=== PATIENT | male | born 1955 | race African-American/Black ===

== ENCOUNTER → 2016-06-14 | Outpatient (CLI) | payer BC | LOC: RAD 07:43 | PROVIDERS: ATTEND Physician Assistant | DX: R94.5 Abnormal results of liver function studies (principal) | CPT/HCPCS: 76705 ==

== ENCOUNTER → 2018-03-04 | Outpatient (CLI) | payer BC ==
--- NOTE | 2018-03-04 16:06 | RADIOLOGY REPORT (SQ) ---
EXAM DESCRIPTION: LUMBAR SPINE COMPLETE COMPLETED DATE/TIME: 03/04/2018 3:37 pm REASON FOR STUDY: RT HIP PAIN M25.551 PAIN IN RIGHT HIP COMPARISON: CT ABDOMEN PELVIS 06/01/2011 NUMBER OF VIEWS: Five views including obliques. TECHNIQUE: AP, lateral, oblique, and sacral radiographic images acquired of the lumbar spine. LIMITATIONS: None. FINDINGS: MINERALIZATION: Normal. SEGMENTATION: Normal. No transitional anatomy. ALIGNMENT: Normal. VERTEBRAE: Maintained height. No fracture or worrisome bone lesion. DISCS: Disc space loss of height at L5-S1 POSTERIOR ELEMENTS: Bilateral facet arthropathy from L3-4 through L5-S1. No plain film evidence of s pondylolysis HARDWARE: None in the spine. PARASPINAL SOFT TISSUES: Normal. PELVIS: Not in the field of view. SI joints are unremarkable OTHER: No other significant finding. IMPRESSION: Disc space loss of height at L5-S1. Lower lumbar facet arthropathy. TECHNICAL DOCUMENTATION: JOB ID: [id number] [employer]- All Rights Reserved Reading location - IP/workstation name: [email or web address]
--- NOTE | 2018-03-04 16:06 | RADIOLOGY REPORT (SQ) ---
EXAM DESCRIPTION: HIP RIGHT AP/LATERAL COMPLETED DATE/TIME: 03/04/2018 3:37 pm REASON FOR STUDY: RT HIP PAIN M25.551 PAIN IN RIGHT HIP COMPARISON: None. NUMBER OF VIEWS: Two views. TECHNIQUE: AP pelvis and additional frog-leg view of the right hip. LIMITATIONS: None. FINDINGS: MINERALIZATION: Normal. RIGHT HIP: Mild asymmetric narrowing of the right hip joint medially. No fracture or dislocation. LEFT HIP: No fracture or dislocation. No worrisome bone lesions. PUBIS AND ISCHIUM: No fracture. PELVIS: No fracture. SACRUM: No fracture or dislocation. No worrisome bone lesions. LOWER LUMBAR SPINE: No fracture or dislocation. No worrisome bone lesions. No significant disc disea se. SOFT TISSUES: No findings. OTHER: No other significant finding. IMPRESSION: 1. Mild degenerative right hip joint narrowing. 2. No acute osseous findings. TECHNICAL DOCUMENTATION: JOB ID: [id number] [employer]- All Rights Reserved Reading location - IP/workstation name: [email or web address]
== END ==
LOC: OD 15:03
PROVIDERS: ATTEND Family Medicine
DX: M25.551 Pain in right hip (principal)
CPT/HCPCS: 72110

== ENCOUNTER 2019-05-29 10:58 | Day surgery (SDC) | payer BC ==
[~2019-05-29 10:58] MED LIST: BUPIVACAINE HCL 0.75% INJ/PF (7.5 MG/1 ML) 10 ML SDV OD PRN; CHONDR SU A NA/HYALUR INTRAOC KIT (SURGICARE) ONE; EPINEPHRINE INJ/PF 1 MG/1 ML AMPULE ONE; KETOROLAC TROMETHAMINE 0.45% 4 DROP/0.4 ML DROPERETTE OD PRN; LIDOCAINE 1% INJ-PF (10 MG/ML) 30 ML SDV ONE; LIDOCAINE 4% INJ/PF (40 MG/ML) 5 ML AMPUL OD PRN
[2019-05-29] MEDS ORDERED: MIDAZOLAM 2 MG/2 ML INJ ONE (11:25)
[2019-05-29] MEDS: CYCLOPENTOLATE 0.2%/PHENYLEPHRINE 1% OPH SOLN 2 ML OD PRN ×3 (11:48→12:08)
[2019-05-29] MEDS: TROPICAMIDE 1% OPH SOLN 15 ML OD PRN ×3 (11:48→12:08)
[2019-05-29] MEDS: TETRACAINE HCL 0.5% OPH SOLN 4 ML OD PRN ×3 (11:48→12:10)
[2019-05-29] MEDS: BESIFLOXACIN HCL 0.6% OPH SUSP 5 ML BOTTLE OD PRN ×4 (11:49→12:36)
[2019-05-29] MEDS: DORZOLAMIDE HCL 2%/TIMOLOL MALEAT 0.5% OPH SOLN 10 ML OD PRN ×2 (12:36)
--- NOTE | 2019-05-29 21:25 | Operative Report ---
Operative Report-[facility] Operative Report: PREOPERATIVE DIAGNOSIS: Nuclear, cortical and posterior subcapsular cataract, right eye POSTOPERATIVE DIAGNOSIS: Nuclear, cortical and posterior subcapsular cataracts, right eye PROCEDURE: Phacoemulsification and posterior chamber intraocular lens implant, right eye PROCEDURE DATE: [May 29, 2019 ] SURGEON: Albino Leavitt MD Next FOOT GATHERER: [Robby] ANESTHESIA: Topical with IV sedation next COMPLICATIONS: None TISSUE TO PATHOLOGY: None ESTIMATED BLOOD LOSS: None INDICATION FOR SURGERY: [Mr. Ortiz is a 63 year old male ] Who presents to our clinic complaining of difficulty seeing, to read and drive due to blurry vision in both eyes. On examination, she was found to have best corrected visual acuity of [20/70 ] in the right eye. Ophthalmoscopy revealed a [1+] nuclear, [2+] corneal degeneration, [3+] posterior subcapsular cataract in the right eye with normal appearing cornea, vitreous, retina and optic nerve. I discussed the findings of the exam with the patient. We discussed the risks, benefits and alternatives of cataract extraction and intraocular lens implant in the right eye as a means of improving her vision. Risks that were discussed with the patient include infection, bleeding, retinal detachment and possible need for additional surgery. The patient understands that she may need to wear glasses after surgery. After discussion, the patient indicated her interest in having this procedure performed by signing an informed witness consent form. REPORT OF PROCEDURE: On the day of surgery, the patient was given a topical application to the right eye to consist of drop of Tetracaine 0.5%, tropicamide 1%, Cyclomidril, Besivance 0.6% and Acular 0.45%. The patient was then taken to the operating room in a supine position in a standard eye bed. Intravenous sedation was administered and she was prepped and draped in the standard fashion. A timeout was performed to confirm the surgical site. Attention was directed to the right eye where a paracentesis was created at the 11:30 position at the corneal limbus with a 15 degree blade. The anterior chamber was filled with 0.3 mL of 1% methylparaben free lidocaine and after 30 seconds the anterior chamber was filled with viscoelastic material. A 3 plane corneal incision was then made at the 9 o'clock position at the cornea limbus with a keratome. A continuous curvilinear capsulorrhexis was then made in the anterior capsule of the lens with a cystotome. The lens was hydrodissected using balanced saline solution. The lens nucleus was then removed by phacoemulsification using the stop and chop technique. CDE [16.40]. The remaining cortical material was then removed from the posterior capsular bag using irrigation and aspiration. The posterior capsule bag was filled with viscoelastic material and a lens implant was inserted into the posterior capsule bag. I have chosen for this case is a one piece acrylic lens from [employer] model [[id number]], serial number [[id number]], lens power [22.0]. The lens was removed from its package, inspected and found to be free of defects it was loaded into a [place] D in serter. The parts runner was passed through the temporal wound and the lens was advanced into the posterior capsular bag. The lens implant was centered in the posterior capsular bag with the Amador spatula the viscoelastic material was removed from the eye using irrigation and aspiration. The wounds were closed by stromal hydration and they were tested with the Weck-Lily sponges and found to have no leaks. Intraocular pressure was assessed by manual palpitation found to be with in the physiologic range. The drape and speculum were removed. Drops of Durezol, Combigan and gatifloxacin were instilled in the right eye. The patient was then taken to the recovery room in good condition. The patient tolerated the procedure very well. The patient was given a prescription for gatifloxacin, Durezol and Ilervo to use every 2 hours while awake today. She will return my clinic tomorrow for follow-up evaluation.
== END 2019-05-29 13:35 | disposition home or self-care (01) ==
LOC: SC 10:58
PROVIDERS: ATTEND Ophthalmology
DX: H25.811 Combined forms of age-related cataract, right eye (principal); Z79.84 Long term (current) use of oral hypoglycemic drugs; Z79.899 Other long term (current) drug therapy; Z79.4 Long term (current) use of insulin; E11.9 Type 2 diabetes mellitus without complications; I10 Essential (primary) hypertension; Z87.891 Personal history of nicotine dependence; E78.00 Pure hypercholesterolemia, unspecified; H25.813 Combined forms of age-related cataract, bilateral; E11.319 Type 2 diabetes mellitus with unspecified diabetic retinopathy without macular edema; H40.1130 Primary open-angle glaucoma, bilateral, stage unspecified
CPT/HCPCS: 66984; 82962; V2632; J2250; J3490 ×3; J0171; 142

== ENCOUNTER 2019-10-15 11:25 | Emergency (ER) | payer BC ==
[2019-10-15] MEDS ORDERED: NORMAL SALINE 1000 ML 1,000 ML IV ONE ×2 (12:05→13:27)
--- NOTE | 2019-10-15 12:09 | ER Document Report ---
ED Medical Screen (RME) - General Chief Complaint: High Blood Sugar Stated Complaint: ABNORMAL LABS Time Seen by Provider: 10/15/19 12:03 Primary Care Provider: KEI SCHAEFFER MD [Primary Care Provider] - Follow up as needed Mode of Arrival: Wheelchair Information source: Patient Notes: 64-year-old male presented to ED for upper abdominal pain abnormal labs diabetic blood sugar in the pit area was 390. He is confused states he went to the doctor's office and they sent him to the emergency room for abnormal labs but he does not know of the even did any labs. He is slightly confused. He states he is having a lot of pain in his epigastric area. I have greeted and performed a rapid initial assessment of this patient. A comprehensive ED assessment and evaluation of the patient, analysis of test results and completion of medical decision making process will be conducted by an additional ED providers. TRAVEL OUTSIDE OF THE [place] IN LAST 30 DAYS: No - Related Data Allergies/Adverse Reactions: ciprofloxacin [From Cipro] Allergy (Unknown, Verified 10/15/19 11:55) Past Medical History - Past Medical History Cardiac Medical History: Reports: Hx Hypertension Denies: Hx Heart Attack Pulmonary Medical History: Denies: Hx Asthma Neurological Medical History: Denies: Hx Cerebrovascular Accident, Hx Seizures GI Medical History: Denies: Hx Hepatitis, Hx Hiatal Hernia, Hx Ulcer Psychiatric Medical History: Denies: Hx Depression Infectious Medical History: Denies: Hx Hepatitis Past Surgical History: Denies: Hx Open Heart Surgery, Hx Pacemaker Physical Exam - Vital signs Vitals: Temp Pulse Resp BP Pulse Ox 98.1 F 101 H 18 151/96 H 96 10/15/19 11:10/15/19 11:10/15/19 11:10/15/19 11:10/15/19 11:27 Course - Vital Signs Vital signs: Temp Pulse Resp BP Pulse Ox 98.1 F 101 H 18 151/96 H 96 10/15/19 11:10/15/19 11:10/15/19 11:10/15/19 11:10/15/19 11:27 Doctor's Discharge - Discharge Referrals: KEI SCHAEFFER MD [Primary Care Provider] - Follow up as needed
[2019-10-15 12:32] LABS: ABSOLUTE BASOPHILS # (AUTO) 0.2 10^3/uL (0.0-0.2); ABSOLUTE EOSINOPHILS # (AUTO) 0.4 10^3/uL (0.0-0.6); ABSOLUTE LYMPHOCYTES (AUTO) 1.8 10^3/uL (0.5-4.7); RED CELL DISTRIBUTION WIDTH 14.4 % (11.5-14.0); TOTAL CELLS COUNTED % (AUTO) 100 %
[2019-10-15 12:45] LABS: VENOUS BLOOD BASE EXCESS -0.6 mmol/L; VENOUS BLOOD HCO3 24.7 mmol/L (20-32); VENOUS BLOOD PCO2 42.8 mmHg (35-63); VENOUS BLOOD PH 7.38 (7.30-7.42)
[2019-10-15 12:45] LABS: ALBUMIN 4.5 g/dL (3.5-5.0); ALKALINE PHOSPHATASE 215 U/L (38-126); ANION GAP 12 (5-19); ASPARTATE AMINO TRANSFERASE 30 U/L (17-59); BILIRUBIN,TOTAL 2.2 mg/dL (0.2-1.3); BLOOD UREA NITROGEN 12 mg/dL (7-20); CALCIUM 9.4 mg/dL (8.4-10.2); CARBON DIOXIDE 25 mmol/L (22-30); CHLORIDE 100 mmol/L (98-107); POTASSIUM 4.5 mmol/L (3.6-5.0); TOTAL PROTEIN 7.9 g/dL (6.3-8.2)
[2019-10-15 12:48] LABS: ABSOLUTE MONOCYTES (AUTO) 0.8 10^3/uL (0.1-1.4); ABSOLUTE NEUT (AUTO) 10.1 10^3/uL (1.7-8.2); BASOPHILS % (AUTO) 1.5 % (0-2); EOSINOPHILS % (AUTO) 3.2 % (0-6); HEMATOCRIT 45.7 % (37.9-51.0); HEMOGLOBIN 15.4 g/dL (13.5-17.0); LYMPHOCYTES % (AUTO) 13.8 % (13-45); MEAN CORPUSCULAR HEMOGLOBIN 30.5 pg (27.0-33.4); MEAN CORPUSCULAR HGB CONC 33.8 g/dL (32.0-36.0); MEAN CORPUSCULAR VOLUME 90 fl (80-97); MONOCYTES % (AUTO) 5.7 % (3-13); RED BLOOD COUNT 5.06 10^6/uL (4.35-5.55); SEGMENTED NEUTROPHILS % (AUTO) 75.8 % (42-78); WHITE BLOOD COUNT 13.3 10^3/uL (4.0-10.5)
[2019-10-15 12:55] LABS: GLUCOSE 402 mg/dL (75-110)
[2019-10-15 13:07] LABS: PLATELET COUNT 252 10^3/uL (150-450)
[2019-10-15] MEDS ORDERED: INSULIN REG, HUMAN 100 UNIT/ML 3 ML VIAL (PYX) IV ONE ×2 (13:30→14:37)
[2019-10-15] MEDS ORDERED: HYDRALAZINE HCL INJ/PF 20 MG/1 ML SDV IV ONE (13:52)
[2019-10-15] MEDS ORDERED: NICARDIPINE HCL RTU, ISO-OS 20 MG/200 ML RTUINJ IV PRN (13:53)
--- NOTE | 2019-10-15 14:04 | RADIOLOGY REPORT (SQ) ---
EXAM DESCRIPTION: CT HEAD WITHOUT IMAGES COMPLETED DATE/TIME: 10/15/2019 1:41 pm REASON FOR STUDY: altered mental status/memory loss COMPARISON: None. TECHNIQUE: Axial images acquired through the brain without intravenous contrast. Images reviewed wi th bone, brain and subdural windows. Additional sagittal and coronal reconstructions were generated. Images stored on PACS. All CT scanners at this facility use dose modulation, iterative reconstruction, and/or weight based d osing when appropriate to reduce radiation dose to as low as reasonably achievable (ALARA). [facility]: Dose Right [facility]: CareDose [facility]: Dose Right [facility]: Teradose 4D [facility]: [employer] RADIATION DOSE: CT Rad equipment meets quality standard of care and radiation dose reduction techniq ues were employed. CTDIvol: 53.2 mGy. DLP: 1070 mGy-cm. LIMITATIONS: None. FINDINGS: There is an area of hyperdensity in the left basal ganglia. There is no considerable mass effect, edema, or midline shift. The basal subarachnoid cisterns are preserved. There is no extra- axial fluid collection or effacement of the cerebral sulci. The confluent areas of hypodensity throughout the supratentorial periventricular and subcortical whit e matter are nonspecific but likely represent the sequela of chronic microvascular ischemia. The caliber the ventricles is concordant with the degree of sulcation. The right globe is aphakic. The orbits are intact. There is polypoid thickening of the mucosal lini ng of the maxillary sinuses. There is no fracture of the calvarium. IMPRESSION: Area of hyperdensity in the left basal ganglia. The location of the abnormality is typi cathie of an hypertensive intracerebral hemorrhage. There is no considerable associated mass effect, ed reji or midline shift. The basal subarachnoid cisterns are preserved. COMMENT: This report was called to HIOR MORRISSEY MD at13:57 on 10/15/2019. Quality ID # [id number]: Final reports with documentation of one or more dose reduction techniques (e.g., Au tomated exposure control, adjustment of the mA and/or kV according to patient size, use of iterative reconstruction technique) TECHNICAL DOCUMENTATION: JOB ID: [id number] 2010 [employer]- All Rights Reserved Reading location - IP/workstation name: [email or web address]
--- NOTE | 2019-10-15 14:05 | RADIOLOGY REPORT (SQ) ---
EXAM DESCRIPTION: CHEST SINGLE VIEW IMAGES COMPLETED DATE/TIME: 10/15/2019 1:53 pm REASON FOR STUDY: hypertension/altered mental status COMPARISON: AP view of the chest from 07/05/2015. EXAM PARAMETERS: NUMBER OF VIEWS: One view. TECHNIQUE: An AP view of the chest was obtained. RADIATION DOSE: NA LIMITATIONS: None. FINDINGS: LUNGS AND PLEURA: Low inspiratory lung volumes without a superimposed consolidation, sizea ble pleural effusion or pneumothorax. MEDIASTINUM AND HILAR STRUCTURES: No mediastinal or hilar contour abnormality. HEART AND VASCULAR STRUCTURES: The cardiac silhouette is enlarged. The pulmonary vasculature is with in normal limits given the low inspiratory lung volumes. BONES: No acute findings. HARDWARE: Implantable cardiac monitoring device. OTHER: No other finding. IMPRESSION: Cardiomegaly and low inspiratory lung volumes without a superimposed acute cardiopulmona ry process. TECHNICAL DOCUMENTATION: JOB ID: [id number] 2010 [employer]- All Rights Reserved Reading location - IP/workstation name: [email or web address]
[2019-10-15 14:09] LABS: PARTIAL THROMBOPLASTIN TIME 30.9 SEC (23.5-35.8)
[2019-10-15 14:11] LABS: PROTHROMBIN TIME 13.2 SEC (11.4-15.4)
[2019-10-15] MEDS ORDERED: TRANEXAMIC ACID INJ/PF 1,000 MG/10 ML SDV IV STA (14:30)
[2019-10-15] MEDS: INSULIN REG, HUMAN 100 UNIT/ML 3 ML VIAL (PYX) IV ONE ×2 (14:35→15:34)
[2019-10-15] MEDS ORDERED: DEXTROSE 5% IV PRN (14:36)
[2019-10-15] MEDS ORDERED: WATER IV PRN (14:36)
[2019-10-15] MEDS ORDERED: TRANEXAMIC ACID IV PRN (14:36)
[2019-10-15] MEDS ORDERED: TRANEXAMIC ACID INJ/PF 1,000 MG/10 ML SDV IV PRN (14:38)
--- NOTE | 2019-10-15 15:19 | ER Document Report ---
Entered by NORA OCASIO SCRIBE 10/15/19 [id number] Acting as scribe for:HIRO MORRISSEY MD ED General - General Chief Complaint: High Blood Sugar Stated Complaint: ABNORMAL LABS Time Seen by Provider: 10/15/19 12:03 Primary Care Provider: KEI GAMBOA MD [Primary Care Provider] - Follow up as needed Mode of Arrival: Wheelchair Information source: Patient, Relative Notes: This 64 year old male patient presents to the emergency department today with abnormal lab results. Patient states he had an appointment with Dr. Gamboa this morning and did not feel well. Dr. Gamboa sent him to the ED after abnormal lab results. Patient states he is unsure of what labs were done at Dr. Gamboa's office. Patient states he is nauseous and had normal bowel movement this morning. Patient denies vision changes, chest pain, abdominal pain, or shortness of breath. Patient states he has a history of strokes. states patient had "double strokes" x4 months ago. states patient fell x1 week ago and has been acting strange the past x5 days. states patient has not been speaking much either. TRAVEL OUTSIDE OF THE [place] IN LAST 30 DAYS: No - Related Data Allergies/Adverse Reactions: ciprofloxacin [From Cipro] Allergy (Unknown, Verified 10/15/19 11:55) Past Medical History - General Information source: Patient, Relative - Social History Smoking Status: Former Smoker Cigarette use (# per day): No Frequency of alcohol use: None Drug Abuse: None Lives with: Family Family History: Reviewed & Not Pertinent Patient has homicidal ideation: No - Past Medical History Cardiac Medical History: Reports: Hx Hypertension Neurological Medical History: Reports: Other - Strokes Endocrine Medical History: Reports: Hx Diabetes Mellitus Type 1 Review of Systems - Review of Systems Constitutional: No symptoms reported EENT: No symptoms reported Cardiovascular: See HPI. denies: Chest pain Respiratory: See HPI. denies: Short of breath Gastrointestinal: See HPI, Nausea, Last bowel movement - This morning. denies: Abdominal pain Genitourinary: No symptoms reported Male Genitourinary: No symptoms reported Musculoskeletal: No symptoms reported Skin: No symptoms reported Hematologic/Lymphatic: No symptoms reported Neurological/Psychological: See HPI -: Yes All other systems reviewed and negative Physical Exam - Vital signs Vitals: Temp Pulse Resp BP Pulse Ox 98.1 F 101 H 18 151/96 H 96 10/15/19 11:27 10/15/19 11:27 10/15/19 11:27 10/15/19 11:27 10/15/19 11:27 - General General appearance: Appears well, Alert - HEENT Head: Normocephalic, Atraumatic Eyes: Normal Pupils: PERRL Mucous membranes: Dry - Respiratory Respiratory status: No respiratory distress Chest status: Nontender Breath sounds: Normal Chest palpation: Normal - Cardiovascular Rhythm: Regular Heart sounds: Normal auscultation, S1 appreciated, S2 appreciated Murmur: No - Abdominal Inspection: Obese Distension: No distension Bowel sounds: Normal Tenderness: Nontender - Extremities General upper extremity: No: Edema General lower extremity: Normal inspection. No: Edema - Neurological Cognition: Confused - Memory loss Orientation: Disoriented to time Speech: Normal Cranial nerves: Normal Cerebellar coordination: Normal Motor strength normal: LUE Notes: Right upper extremity night coordinator strength 3/5. - Psychological Associated symptoms: Normal affect, Normal mood - Skin Skin Temperature: Warm Skin Moisture: Dry Skin Color: Normal Course - Re-evaluation Re-evalutation: 10/15/19 15:08 Patient sitting up in bed showing no signs of distress. Denies a headache still has the right night coordinator strength 3+ otherwise and speech is clear he states he feels fine. 10/15/19 15:18 Case discussed with in the neuro ICU [facility]. Dr. Crockett advised to begin the TXA drip and bolus and monitor blood pressure to keep systolic less than 160 and to begin insulin drip. - Vital Signs Vital signs: Temp Pulse Resp BP Pulse Ox 98.1 F 92 21 H 178/103 H 98 10/15/19 11:27 10/15/19 13:51 10/15/19 14:15 10/15/19 14:15 10/15/19 14:15 10/15/19 15:09 Most recent blood pressure was 153 systolic. - Laboratory Result Diagrams: 10/15/19 12:15 10/15/19 12:15 Laboratory results interpreted by me: 10/15/19 10/15/19 10/15/19 12:04 12:15 12:15 WBC 13.3 H RDW 14.4 H Absolute Neuts (auto) 10.1 H Sodium 136.8 L Glucose 402 H* POC Glucose 390 H Total Bilirubin 2.2 H Alkaline Phosphatase 215 H 10/15/19 10/15/19 13:26 13:50 WBC RDW Absolute Neuts (auto) Sodium Glucose POC Glucose 363 H 338 H Total Bilirubin Alkaline Phosphatase 10/15/19 15:10 Laboratory results shows blood sugar 402 and otherwise no other acute changes noted. - Diagnostic Test Radiology reviewed: Image reviewed, Reports reviewed Radiology results interpreted by me: 10/15/19 15:10 CT scan of head shows left basal ganglier intracerebral bleed with no vasogenic effect no shift. - EKG Interpretation by Me Additional EKG results interpreted by me: 10/15/19 15:11 EKG shows normal sinus rhythm rate of 99 probable old inferior AL. Old lateral AL. Anterior infarct age indeterminate no acute ST changes at this time. Critical Care Note - Critical Care Note Total time excluding time spent on procedures (mins): 49 - Management of patient with acute CVA with right-sided weakness. Hypertensive crisis. Hyperglycemia management. Discussion with transfer team and family. Discharge - Discharge Clinical Impression: Hypertensive crisis, Intracerebral bleed Condition: Critical Disposition: [facility] Referrals: KEI GAMBOA MD [Primary Care Provider] - Follow up as needed ED NIH Stroke Scale - NIH Stroke Scale *: 1. NIH scale should be completed with appropriate accompanying assessment tools. *: 2. The NIH should reflect what the patient is capable of doing and should not be coached by the clinician. 1a. Level of Consciousness: 0=Alert;keenly responsive -: 1=Drowsy -: 2=Obtunded -: 3=Coma/unresponsive or reflex to noxious stimuli. 1a. Responses: 0 1b. Orientation Questions: a. What month is it? -: b. How old are you? -: 0=Answers both questions correctly. -: 1=Answers one question correctly or patient is intubated or has orotracheal trauma. -: 2=Answers neither question correctly. 1b. Responses: 1 1c. Response to commands: a. Open and close eyes? -: b. New Car Make Ready Mechanic and release hand? -: Credit is given despite weakness. Demonstration of task is permitted. Substitute command if hands cannot be used. -: 0=Performs both tasks correctly -: 1=Performs one task correctly -: 2=Performs neither task correctly 1c. Responses: 0 2. Gaze: Establish eye contact and instruct patient to "Follow my finger" -: 0=Normal -: 1=Partial gaze palsy. Gaze is abnormal in one or both eyes, but where forced deviation or total gaze paresis is not present. -: 2=Forced deviation or total gaze paresis. 2. Responses: 0 3. Visual Sloan: Sees fingers in all four quadrants. -: 0=No visual loss. -: 1=Partial hemianopsia. -: 2=Complete hemianopsia. -: 3=Bilateral hemianopsia (including Cortical blindness) 3. Responses: 0 4. Facial Movement: Instruct patient to: -: a. Show me your teeth -: b. Raise your eyebrows -: c. Close your eyes -: d. Smile -: 0=Normal symmetrical movement -: 1=Minor paralysis (flattened nasolabial fold, asymmetry on smiling). -: 2=Partial paralysis (total or near total paralysis of lower face). -: 3=Complete paralysis of upper and lower face 4. Responses: 0 5. Motor functions (left arm): Alternate sides and extend each arm with palms down (90 degrees if sitting or 45 degrees for supine). -: 0=No drift;limb holds for full 10 seconds. -: 1=Drift; limb holds but drifts down before full 10 seconds, but does not hit bed. -: 2=Some effort against gravity; limb cannot get to or maintain position. -: 3=No effort against gravity; limb falls. -: 4=No movement. -: UN=Amputation, joint fusion, explain in comments. 5. Motor Functions (right arm): Alternate sides and extend each arm with palms down (90 degrees if sitting or 45 degrees for supine). -: 0=No drift;limb holds for full 10 seconds. -: 1=Drift; limb holds but drifts down before full 10 seconds, but does not hit bed. -: 2=Some effort against gravity; limb cannot get to or maintain position. -: 3=No effort against gravity; limb falls. -: 4=No movement. -: UN=Amputation, joint fusion, explain in comments. 5. Responses (right arm): 0 6. Motor Functions (left leg): With patient lying supine, alternate sides and extend each leg (30 degrees always while supine). -: 0=No drift, leg holds position for full 5 seconds -: 1=Drift; leg falls before full 5 seconds but does not hit bed. -: 2=Some effort against gravity, leg falls to bed but some effort against gravity. -: 3=No effort against gravity, leg falls to bed immediately. -: 4=No movement. -: UN=Amputation, joint fusion; explain in comments. 6. Responses (left leg): 0 6. Motor Functions (right leg): With patient lying supine, alternate sides and extend each leg (30 degrees always while supine). -: 0=No drift, leg holds position for full 5 seconds -: 1=Drift; leg falls before full 5 seconds but does not hit bed. -: 2=Some effort against gravity, leg falls to bed but some effort against gravity. -: 3=No effort against gravity, leg falls to bed immediately. -: 4=No movement. -: UN=Amputation, joint fusion; explain in comments. 6. Responses (right leg): 0 7. Limb Ataxia: With eyes open instruct patient to: -: a. "Touch your finger to your nose". -: b. "Touch your heel to your miller" -: 0=Absent -: 1=Present in one limb. -: 2=Present in two limbs. -: UN=Amputation or joint fusion; explain in comments. 7. Responses: 0 8. Sensory: Test sensation using pinprick or noxious stimuli. Test as many body parts as possible. -: 0=Normal;no sensory loss -: 1=Mile to moderate sensory loss (patient feels pin prick but is less sharp on affected side). -: 2=Severe or total sensory loss. 8. Responses: 0 9. Best Language: Instruct patient to: -: a. "Describe what you see in this picture." -: b. "Name the items in this picture." -: c. "Read these sentences." -: 0=No aphasia, normal -: 1=Mild to moderate aphasia. -: 2=Severe aphasia -: 3=Mute, global aphasia, no usable speech or auditory comprehension. 9. Responses: 0 10. Articulation, Dysarthia: Instruct patient to: -: "Read these words" or "Repeat these words" -: 0=Normal -: 1=Mild to moderate; patient may slur some words but can be understood without difficulty. -: 2=Severe; patients speech so slurred as to be unintelligible in the absence of dysphasia. -: UN=Intubated or other physical barrier, explain in comments. 10. Responses: 0 11. Extinction or inattention: 0=No abnormality -: 1= Visual, tactile, auditory, spatial, or personal inattention or extinction to bilateral simulation in one or the sensory modalities. -: 2=Profound hunter-inattention or hunter-inattention to more than one modality; does not recognize own hand. 11. Responses: 1 Total Score: 2 Notes: Right night coordinator strength of the right hand 3 out of 5. Patient was not ambulated but I understand patient has a prior stroke with right upper and lower extremity weakness and per patient tracks his feet when he walks on the right I personally performed the services described in the documentation, reviewed and edited the documentation which was dictated to the scribe in my presence, and it accurately records my words and actions.
[2019-10-15 15:26] VITALS: BP 153/89
--- NOTE | 2019-10-15 19:37 | EKG REPORT ---
SEVERITY:- ABNORMAL ECG - SINUS RHYTHM PROBABLE INFERIOR INFARCT, AGE INDETERMINATE LATERAL INFARCT, OLD ANTERIOR INFARCT, AGE INDETERMINATE : Confirmed by: Son Castro MD 15-Oct-2019 19:37:05
== END 2019-10-15 15:41 | disposition short-term general hospital (02) ==
LOC: ER 11:25
DX: I61.9 Nontraumatic intracerebral hemorrhage, unspecified (principal); G81.91 Hemiplegia, unspecified affecting right dominant side; R29.702 NIHSS score 2; I16.9 Hypertensive crisis, unspecified; E66.9 Obesity, unspecified; R11.0 Nausea; Z88.3 Allergy status to other anti-infective agents
CPT/HCPCS: 93005; 99285; 96361; 96375; 96365; 36415; 82962; 83690; 85025; 85610; 85730; 80053; 84484; 82803; 71045; 70450; 93010; J0360; J1815; J7060; J7030; J3490 ×2

== ENCOUNTER → 2019-11-17 | Outpatient (CLI) | payer BC ==
--- NOTE | 2019-11-17 08:28 | RADIOLOGY REPORT (SQ) ---
EXAM DESCRIPTION: CT HEAD WITHOUT IMAGES COMPLETED DATE/TIME: 11/17/2019 7:57 am REASON FOR STUDY: BASAL GANGLIA HEMORRHAGE (I61.0) I61.0 NONTRAUMATIC INTCRBL HEMORRHAGE IN HEMISPH ERE, SUBCORT COMPARISON: 10/15/2019 TECHNIQUE: Axial images acquired through the brain without intravenous contrast. Images reviewed wi th bone, brain and subdural windows. Additional sagittal and coronal reconstructions were generated. Images stored on PACS. All CT scanners at this facility use dose modulation, iterative reconstruction, and/or weight based d osing when appropriate to reduce radiation dose to as low as reasonably achievable (ALARA). [facility]: Dose Right [facility]: CareDose [facility]: Dose Right [facility]: Teradose 4D [facility]: Minimally invasive devices RADIATION DOSE: CT Rad equipment meets quality standard of care and radiation dose reduction techniq ues were employed. CTDIvol: 48.6 mGy. DLP: 880 mGy-cm.mGy. LIMITATIONS: None. FINDINGS: VENTRICLES: Prominent. CEREBRUM: No masses. No hemorrhage. No midline shift. Areas of low density in the white matter mos t likely due to chronic micro-vascular ischemic change. No evidence for acute infarction. Previousl y described left basal ganglia hemorrhage has resolved. CEREBELLUM: No masses. No hemorrhage. No alteration of density. No evidence for acute infarction. EXTRAAXIAL SPACES: Age-related involutional change. No fluid collections. No masses. ORBITS AND GLOBE: No intra- or extraconal masses. Normal contour of globe without masses. CALVARIUM: No fracture. PARANASAL SINUSES: There is bilateral maxillary sinus disease with mixed attenuation. SOFT TISSUES: No mass or hematoma. OTHER: No other significant finding. IMPRESSION: Atrophy and small-vessel ischemic changes. No acute intracranial event. The left basal ganglia image previously described has resolved. EVIDENCE OF ACUTE STROKE: NO. TECHNICAL DOCUMENTATION: JOB ID: [id number] Quality ID # [id number]: Final reports with documentation of one or more dose reduction techniques (e.g., Au tomated exposure control, adjustment of the mA and/or kV according to patient size, use of iterative reconstruction technique) 2010 [employer]- All Rights Reserved Reading location - IP/workstation name: [email or web address]
== END ==
LOC: RAD 07:44
PROVIDERS: ATTEND Family Medicine
DX: I61.0 Nontraumatic intracerebral hemorrhage in hemisphere, subcortical (principal)
CPT/HCPCS: 70450

== ENCOUNTER 2020-01-10 17:04 | Inpatient (IN) | payer MEDICARE, BC ==
--- NOTE | 2020-01-10 17:51 | ER Document Report ---
ED General - General Mode of Arrival: Medic Information source: Patient TRAVEL OUTSIDE OF THE [place] IN LAST 30 DAYS: No - HPI Onset: Other - 3 days Onset/Duration: Persistent Quality of pain: No pain Pain Level: Denies Associated symptoms: Diarrhea, Nausea, Vomiting. denies: Chest pain, Nonproductive cough, Productive cough, Fever, Shortness of breath Exacerbated by: Denies Relieved by: Denies Similar symptoms previously: No Recently seen / treated by doctor: Yes - Related Data Home Medications: Janumet, Atorvastatin, Irbesartan, Furosemide, Nateqlinide, Omperazole, Gabapentin, Tresiba <MARCIE KERN - Last Filed: 01/10/20 20:08> <JAGUAR VALADEZ - Last Filed: 01/10/20 21:36> - General Chief Complaint: Nausea/Vomiting/Diarrhea Stated Complaint: VOMITING/NAUSEA/DIARRHEA Time Seen by Provider: 01/10/20 17:31 Notes: Patient presents with a 3-day history of nausea vomiting diarrhea. Patient reports vomiting about 4 times today and having diarrhea about the same number of times. Patient complains of generalized weakness that he attributes to the vomiting and diarrhea. Patient denies any chest pain abdominal pain or back pain. Patient denies any cough or cold symptoms. EMS reports that patient's oxygen saturation dropped into the 80s so they applied oxygen at 4 L. Patient denies any respiratory symptoms or any previous history of need for oxygen. (MARCIE KERN) - Related Data Allergies/Adverse Reactions: ciprofloxacin [From Cipro] Allergy (Unknown, Verified 12/24/19 08:51) Past Medical History - General Information source: Patient - Social History Smoking Status: Former Smoker Frequency of alcohol use: None Drug Abuse: None Lives with: Family Family History: Reviewed & Not Pertinent - Past Medical History Cardiac Medical History: Reports: Hx Hypercholesterolemia, Hx Hypertension Denies: Hx Heart Attack Pulmonary Medical History: Denies: Hx Asthma Neurological Medical History: Reports: Hx Cerebrovascular Accident. Denies: Hx Seizures Endocrine Medical History: Reports: Hx Diabetes Mellitus Type 1, Hx Diabetes Mellitus Type 2 Malignancy Medical History: Reports Other - Prostate cancer GI Medical History: Reports: Hx Gastroesophageal Reflux Disease. Denies: Hx Hepatitis, Hx Hiatal Hernia, Hx Ulcer Psychiatric Medical History: Denies: Hx Depression Infectious Medical History: Denies: Hx Hepatitis Past Surgical History: Reports: Other - Prostate <MARCIE KERN - Last Filed: 01/10/20 20:08> Review of Systems - Review of Systems Constitutional: Weakness. denies: Fever EENT: No symptoms reported Cardiovascular: No symptoms reported. denies: Chest pain, Dyspnea Respiratory: No symptoms reported. denies: Cough, Short of breath Gastrointestinal: Abdominal pain, Diarrhea, Nausea, Vomiting Genitourinary: No symptoms reported. denies: Dysuria, Flank pain Male Genitourinary: No symptoms reported Musculoskeletal: No symptoms reported. denies: Back pain Skin: No symptoms reported Hematologic/Lymphatic: No symptoms reported Neurological/Psychological: Weakness - generalized <MARCIE KERN - Last Filed: 01/10/20 20:08> Physical Exam - General General appearance: Alert In distress: Mild - HEENT Head: Normocephalic, Atraumatic Eyes: Normal Conjunctiva: Normal Nasal: Normal Mouth/Lips: Normal Neck: Normal, Supple. No: Lymphadenopathy - Respiratory Respiratory status: No respiratory distress Chest status: Nontender Breath sounds: Rales - RLL. No: Nonproductive cough, Productive cough Chest palpation: Normal. No: Tender - Cardiovascular Rhythm: Regular Heart sounds: S1 appreciated, S2 appreciated Murmur: No - Abdominal Inspection: Morbidly Obese Distension: No distension Bowel sounds: Normal Tenderness: Nontender Organomegaly: No organomegaly - Back Back: Normal, Nontender. No: CVA tenderness - Extremities General upper extremity: Normal inspection General lower extremity: Normal inspection - Neurological Neuro grossly intact: Yes Cognition: Normal Va Coma Scale Eye Opening: Spontaneous Va Coma Scale Verbal: Oriented Va Coma Scale Motor: Obeys Commands [place] Coma Scale Total: 15 - Psychological Associated symptoms: Normal affect, Normal mood - Skin Skin Temperature: Warm Skin Moisture: Dry Skin Color: Pale <MARCIE KERN - Last Filed: 01/10/20 20:08> - Vital signs Vitals: BP Pulse Ox 133/76 H 96 01/10/20 17:04 01/10/20 17:04 Course - Laboratory Result Diagrams: 01/10/20 18:10 01/10/20 18:10 <MARCIE KERN - Last Filed: 01/10/20 20:08> - Laboratory Result Diagrams: 01/10/20 18:10 01/10/20 18:10 <JAGUAR VALADEZ - Last Filed: 01/10/20 21:36> - Re-evaluation Re-evalutation: 01/10/20 18:32 Patient's oxygen saturation 87-90 on room air, heart rate 100. Patient with rales to the right lower lobe. Patient denies any chest pain or shortness of breath symptoms. Patient's oxygen saturation increases to the mid 90s with oxygen at 2 L nasal cannula. Patient states that he does not typically wear oxygen. 01/10/20 20:10 Report and handoff given to ADDIS Ferreira (MARCIE KERN) CT negative except for patchy infiltrates in both lungs. Given patient's constitutional symptoms, generalized weakness, new hypoxia requiring oxygen, overall I suspect patient has COVID-19 pneumonia. Patient started on Rocephin, azithromycin, will be started on dexamethasone. I called and spoke with Dr. Conti, on-call for Dr. Gamboa who is patient's provider. He requests dexamethasone 20 mg IV q8h scheduled, he accepts patient for admission. I discussed with patient and nursing staff called and spoke with patient's . They state understanding and agreement. (JAGUAR VALADEZ) - Vital Signs Vital signs: Temp Pulse Resp BP Pulse Ox 19 141/81 H 94 01/10/20 18:52 01/10/20 18:52 01/10/20 18:55 - Laboratory Laboratory results interpreted by me: 01/10/20 01/10/20 01/10/20 18:10 18:10 18:10 Hgb 13.3 L RDW 14.4 H Lymph % (Auto) 8.1 L Seg Neutrophils % 84.1 H Potassium 3.4 L Glucose 257 H Total Bilirubin 3.8 H NT-Pro-B Natriuret Pep 367 H Labs- All tests 24 hr 01/10/20 01/10/20 01/10/20 18:10 18:10 18:10 WBC 9.0 RBC 4.42 Hgb 13.3 L Hct 39.6 MCV 90 MCH 30.1 MCHC 33.6 RDW 14.4 H Plt Count 255 Lymph % (Auto) 8.1 L [place] % (Auto) 6.9 Eos % (Auto) 0.3 Baso % (Auto) 0.6 Absolute Neuts (auto) 7.6 Absolute Lymphs (auto) 0.7 Absolute Monos (auto) 0.6 Absolute Eos (auto) 0.0 Absolute Basos (auto) 0.1 Seg Neutrophils % 84.1 H Carbonic Acid HCO3/H2CO3 Ratio ABG pH ABG pCO2 ABG pO2 ABG HCO3 ABG Total CO2 ABG O2 Saturation ABG Base Excess VBG pH VBG pCO2 VBG HCO3 VBG Base Excess FiO2 Sodium 139.0 Potassium 3.4 L Chloride 99 Carbon Dioxide 29 Anion Gap 11 BUN 13 Creatinine 0.85 Est GFR ( Amer) > 60 Est GFR (MDRD) Non-Af > 60 Glucose 257 H Calcium 8.7 Magnesium 1.8 Total Bilirubin 3.8 H Direct Bilirubin 0.2 Neonat Total Bilirubin Not Reportable Neonat Direct Bilirubin Not Reportable Neonat Indirect Bili Not Reportable AST 35 ALT 27 Alkaline Phosphatase 91 Troponin I < 0.012 NT-Pro-B Natriuret Pep Total Protein 7.4 Albumin 4.0 Lipase 150.4 01/10/20 01/10/20 01/10/20 18:10 18:47 19:13 WBC RBC Hgb Hct MCV MCH MCHC RDW Plt Count Lymph % (Auto) [place] % (Auto) Eos % (Auto) Baso % (Auto) Absolute Neuts (auto) Absolute Lymphs (auto) Absolute Monos (auto) Absolute Eos (auto) Absolute Basos (auto) Seg Neutrophils % Carbonic Acid Cancelled HCO3/H2CO3 Ratio Cancelled ABG pH Cancelled ABG pCO2 Cancelled ABG pO2 Cancelled ABG HCO3 Cancelled ABG Total CO2 Cancelled ABG O2 Saturation Cancelled ABG Base Excess Cancelled VBG pH 7.39 VBG pCO2 47.2 VBG HCO3 27.9 VBG Base Excess 2.2 FiO2 Cancelled Sodium Potassium Chloride Carbon Dioxide Anion Gap BUN Creatinine Est GFR ( Amer) Est GFR (MDRD) Non-Af Glucose Calcium Magnesium Total Bilirubin Direct Bilirubin Neonat Total Bilirubin Neonat Direct Bilirubin Neonat Indirect Bili AST ALT Alkaline Phosphatase Troponin I NT-Pro-B Natriuret Pep 367 H Total Protein Albumin Lipase (MARCIE KERN) Discharge <MARCIE KERN - Last Filed: 01/10/20 20:08> - Discharge Admitting Provider: Gallito Gamboa Unit Admitted: Telemetry <FRIANT,JAGUAR - Last Filed: 01/10/20 21:36> - Discharge Clinical Impression: Hypoxia, Weakness Pneumonia Qualifiers: Pneumonia type: due to unspecified organism Laterality: bilateral Lung locati on: unspecified part of lung Qualified Code(s): J18.9 - Pneumonia, unspecified organism Condition: Stable Disposition: ADMITTED INPATIENT
--- NOTE | 2020-01-10 18:18 | RADIOLOGY REPORT (SQ) ---
EXAM DESCRIPTION: CHEST SINGLE VIEW IMAGES COMPLETED DATE/TIME: 01/10/2020 6:03 pm REASON FOR STUDY: hypoxia COMPARISON: 12/25/2019 FINDINGS: One-view chest AP portable upright. When compared to prior, improved. Mild persistent basilar subsegmental atelectasis. No pneumothorax . No new or developing infiltrate. Cardiomegaly with stable cardiomediastinal silhouette. TECHNICAL DOCUMENTATION: JOB ID: [id number] Reading location - IP/workstation name: [email or web address]
[2020-01-10] MEDS ORDERED: ONDANSETRON HCL INJ/PF 4 MG/2 ML SDV IV ONE (18:37)
[2020-01-10 18:45] LABS: ABSOLUTE BASOPHILS # (AUTO) 0.1 10^3/uL (0.0-0.2); ABSOLUTE LYMPHOCYTES (AUTO) 0.7 10^3/uL (0.5-4.7); ABSOLUTE MONOCYTES (AUTO) 0.6 10^3/uL (0.1-1.4); ABSOLUTE NEUT (AUTO) 7.6 10^3/uL (1.7-8.2); BASOPHILS % (AUTO) 0.6 % (0-2); EOSINOPHILS % (AUTO) 0.3 % (0-6); HEMATOCRIT 39.6 % (37.9-51.0); HEMOGLOBIN 13.3 g/dL (13.5-17.0); LYMPHOCYTES % (AUTO) 8.1 % (13-45); MEAN CORPUSCULAR HEMOGLOBIN 30.1 pg (27.0-33.4); MEAN CORPUSCULAR HGB CONC 33.6 g/dL (32.0-36.0); MEAN CORPUSCULAR VOLUME 90 fl (80-97); MONOCYTES % (AUTO) 6.9 % (3-13); PLATELET COUNT 255 10^3/uL (150-450); RED BLOOD COUNT 4.42 10^6/uL (4.35-5.55); RED CELL DISTRIBUTION WIDTH 14.4 % (11.5-14.0); SEGMENTED NEUTROPHILS % (AUTO) 84.1 % (42-78); TOTAL CELLS COUNTED % (AUTO) 100 %
[2020-01-10 19:03] LABS: ALKALINE PHOSPHATASE 91 U/L (38-126); ANION GAP 11 (5-19); ASPARTATE AMINO TRANSFERASE 35 U/L (17-59); BILIRUBIN,DIRECT 0.2 mg/dL (0.0-0.4); BILIRUBIN,TOTAL 3.8 mg/dL (0.2-1.3); BLOOD UREA NITROGEN 13 mg/dL (7-20); CALCIUM 8.7 mg/dL (8.4-10.2); CARBON DIOXIDE 29 mmol/L (22-30); CHLORIDE 99 mmol/L (98-107); GLUCOSE 257 mg/dL (75-110); POTASSIUM 3.4 mmol/L (3.6-5.0); TOTAL PROTEIN 7.4 g/dL (6.3-8.2)
[2020-01-10 19:23] LABS: VENOUS BLOOD BASE EXCESS 2.2 mmol/L; VENOUS BLOOD HCO3 27.9 mmol/L (20-32); VENOUS BLOOD PCO2 47.2 mmHg (35-63); VENOUS BLOOD PH 7.39 (7.30-7.42)
--- NOTE | 2020-01-10 20:29 | RADIOLOGY REPORT (SQ) ---
EXAM DESCRIPTION: CT CHEST ANGIOGRAPHY WITHOUT THEN WITH IV CONTRAST, CT ABDOMEN PELVIS WITH IV CONTRAST COMPLETED DATE/TME: 01/10/2020 19:10 (accession [id number]), 01/10/2020 19:11 (accession [id number]) CLINICAL HISTORY: 64 years Male hypoxia, tachycardia COMPARISON: 12/24/2019. TECHNIQUE: Dynamic sequential axial imaging was acquired through the chest during infusion of intravenous contrast for the purpose of CTA with MIP imaging provided. Contiguous axial images obtained through the abdomen and pelvis following IV contrast. Reformatted images obtained. This exam was performed according to our department optimization program which includes automated exposure control, adjustment of the mA and/or kv according to patient size and/or use of iterative reconstruction technique. FINDINGS: CHEST: Hiatal hernia. Cardiac enlargement. Aorta is normal in caliber without dissection or rupture. Calcification in the aorta and the coronary arteries. Motion artifact limits evaluation of the pulmonary arteries. There is no convincing evidence for pulmonary embolus. No significant thoracic adenopathy. There are diffuse areas of groundglass density with some areas of airspace disease. Findings are nonspecific but viral pneumonia is not excluded. Abdomen pelvis: The liver appears unremarkable. The spleen and pancreas appear unremarkable. No adrenal masses. The kidneys appear unremarkable. No hydronephrosis. The gallbladder is present with dependent calculi. No aneurysmal dilatation of the aorta. No bowel obstruction. The appendix is unremarkable. No significant free fluid noted. IMPRESSION: No acute process in the abdomen or pelvis Cholelithiasis Patchy areas of infiltrate in the chest bilaterally. Findings are nonspecific and may BE infectious or inflammatory. Possibility of viral pneumonia is not excluded.
[2020-01-10] MEDS ORDERED: AZITHROMYCIN INJ 500 MG VIAL IV ONE (21:00)
[2020-01-10] MEDS ORDERED: CEFTRIAXONE 1 GM/D5W RTU 1 GM/50 ML RTUPB IV ONE (21:00)
--- NOTE | 2020-01-10 21:02 | RADIOLOGY REPORT (SQ) ---
EXAM DESCRIPTION: US ABDOMEN LIMITED COMPLETED DATE/TME: 01/10/2020 19:09 CLINICAL HISTORY: 64 years, Male, elevated bili, +N/V COMPARISON: CTA 520 TECHNIQUE: Limited right upper quadrant ultrasound LIMITATIONS: None. FINDINGS: Echogenic appearance to the liver consistent with fatty infiltrative change. Cholelithiasis. No gallbladder wall thickening or pericholecystic fluid. Negative sonographic Kerns sign. CBD measures 1.7 mm. Visualized pancreas, abdominal aorta, inferior vena cava, right kidney unremarkable. No ascites IMPRESSION: Cholelithiasis. No sonographic evidence for cholecystitis. Fatty infiltrative change to the liver copyright 2010 [employer]- All Rights Reserved
[2020-01-10] MEDS ORDERED: DEXAMETHASONE SOD PHOS INJ 10 MG/1 ML VIAL ONE (21:25)
[2020-01-10] MEDS: DEXAMETHASONE SOD PHOS INJ 10 MG/1 ML VIAL IV SCH (21:31)
[2020-01-10] MEDS ORDERED: ACETAMINOPHEN 325 MG TABLET PO PRN (23:45)
[2020-01-10] MEDS ORDERED: DEXTROSE 50%-WATER 25 GM/50 ML DISP.SYRIN IV PRN ×2 (23:46)
[2020-01-10] MEDS ORDERED: GLUCAGON,HUMAN RECOMB 1 MG INJ IM PRN (23:46)
[2020-01-10] MEDS ORDERED: DEXTROSE 40% GEL 15 GM TUBE PO PRN ×2 (23:46)
[2020-01-10] MEDS ORDERED: ONDANSETRON HCL INJ/PF 4 MG/2 ML SDV IV PRN (23:55)
[2020-01-11] MEDS: NORMAL SALINE 1000 ML 1,000 ML IV PRN ×3 (00:50→22:13)
[2020-01-11] MEDS ORDERED: DEXAMETHASONE SOD PHOSPHATE INJ 4 MG/1 ML VIAL ONE (05:42)
[2020-01-11] MEDS: DEXAMETHASONE SOD PHOS INJ 10 MG/1 ML VIAL IV SCH ×2 (05:53→16:06)
[2020-01-11] MEDS: PANTOPRAZOLE SODIUM 40 MG TABLET.DR PO SCH (05:54)
[2020-01-11 06:06] LABS: ABSOLUTE LYMPHOCYTES (AUTO) 0.9 10^3/uL (0.5-4.7); ABSOLUTE MONOCYTES (AUTO) 0.3 10^3/uL (0.1-1.4); ABSOLUTE NEUT (AUTO) 6.4 10^3/uL (1.7-8.2); BASOPHILS % (AUTO) 0.3 % (0-2); HEMATOCRIT 37.1 % (37.9-51.0); HEMOGLOBIN 12.5 g/dL (13.5-17.0); LYMPHOCYTES % (AUTO) 11.6 % (13-45); MEAN CORPUSCULAR HEMOGLOBIN 30.2 pg (27.0-33.4); MEAN CORPUSCULAR HGB CONC 33.7 g/dL (32.0-36.0); MEAN CORPUSCULAR VOLUME 90 fl (80-97); MONOCYTES % (AUTO) 3.4 % (3-13); PLATELET COUNT 225 10^3/uL (150-450); RED BLOOD COUNT 4.14 10^6/uL (4.35-5.55); RED CELL DISTRIBUTION WIDTH 14.5 % (11.5-14.0); SEGMENTED NEUTROPHILS % (AUTO) 84.7 % (42-78); TOTAL CELLS COUNTED % (AUTO) 100 %; WHITE BLOOD COUNT 7.5 10^3/uL (4.0-10.5)
[2020-01-11 06:21] LABS: ALBUMIN 3.5 g/dL (3.5-5.0); ALKALINE PHOSPHATASE 83 U/L (38-126); ANION GAP 13 (5-19); ASPARTATE AMINO TRANSFERASE 31 U/L (17-59); BILIRUBIN,DIRECT 0.4 mg/dL (0.0-0.4); BILIRUBIN,TOTAL 2.9 mg/dL (0.2-1.3); BLOOD UREA NITROGEN 21 mg/dL (7-20); CALCIUM 8.4 mg/dL (8.4-10.2); CARBON DIOXIDE 24 mmol/L (22-30); CHLORIDE 102 mmol/L (98-107); GLUCOSE 395 mg/dL (75-110); POTASSIUM 3.6 mmol/L (3.6-5.0); TOTAL PROTEIN 6.6 g/dL (6.3-8.2)
[2020-01-11 06:25] LABS: C-REACTIVE PROTEIN 54.3 mg/L (<10.0)
[2020-01-11] MEDS: INSULIN LISPRO 100 UNIT/ML 3 ML VIAL SUBCUT SCH ×4 (08:17→22:03)
[2020-01-11] MEDS: ASCORBIC ACID 500 MG TABLET PO SCH ×2 (09:10→17:09)
[2020-01-11] MEDS: ENOXAPARIN SODIUM INJ 40 MG/0.4 ML DISP.SYRIN SUBCUT SCH (09:10)
[2020-01-11] MEDS: ZINC SULFATE 220 MG CAPSULE PO SCH (09:10)
[2020-01-11] MEDS: DEXAMETHASONE SOD PHOSPHATE INJ 4 MG/1 ML VIAL IV SCH ×2 (17:09→21:39)
[2020-01-11] MEDS: LOSARTAN POTASSIUM 50 MG TABLET PO SCH (17:20)
[2020-01-11] MEDS: METFORMIN HCL 500 MG TABLET PO SCH (17:20)
[2020-01-11] MEDS: SITAGLIPTIN PHOSPHATE 50 MG TABLET PO SCH (17:21)
[2020-01-11] MEDS ORDERED: INSULIN DEGLUDEC 44 UNIT SQ SCH (18:00)
[2020-01-11] MEDS ORDERED: JANUMET PO SCH (18:00)
--- NOTE | 2020-01-11 19:08 | PDOC H&P ---
History of Present Illness Admission Date/PCP: 01/10/20 21:26 KATHIE SCHAEFFER MD Patient complains of: Nausea, Vomiting, Diarrhea History of Present Illness: CHEY PICHARDO JR is a 64 year old male patient of Dr. Kathie Schaeffer who presented to the ED with several days of nausea, vomiting and diarrhea. Patient reported associated generalized weakness. He denied any associated abdominal pain, hematochezia, or tarry stool. He denied any chills, fever, headache or chest pain. Patient reported associated dizziness with postural changes and difficulty with walking. He denied any associated chest pain, productive cough, or difficulty with breathing although EMS personnel reported associated hypoxemia on room air and patient had to be placed on supplemental oxygen at 4L with improvement in his base saturation at 80%. Patient denied any history of COPD or medical condition requiring supplemental oxygen in the pas. He denied exposure to anyone acutely ill or with diagnosis of COVID-19. He denied traveling out of [facility] in recent time. His initial ED evaluation was suggestive of pneumonia with concern for possible COVID-19 infection. His morbidities are listed below. He was advised hospitalization for further evaluation and management. Past Medical History Cardiac Medical History: Reports: Hyperlipidema, Hypertension Denies: Myocardial Infarction Pulmonary Medical History: Denies: Asthma Neurological Medical History: Denies: Seizures Endocrine Medical History: Reports: Diabetes Mellitus Type 1, Diabetes Mellitus Type 2 Malignancy Medical History: Reports: Other - Prostate cancer GI Medical History: Reports: Gastroesophageal Reflux Disease Denies: Hepatitis, Hiatal Hernia Psychiatric Medical History: Denies: Depression Hematology: Denies: Anemia, Sickle Cell Disease Past Surgical History Past Surgical History: Reports: Other - Prostate Denies: Pacemaker Social History Lives with: Family Smoking Status: Former Smoker Frequency of Alcohol Use: None Hx Recreational Drug Use: No Drugs: None Hx Prescription Drug Abuse: No - Advance Directive Resuscitation Status: Full Code Family History Family History: Reviewed & Not Pertinent Parental Family History Reviewed: Yes Children Family History Reviewed: Yes Sibling(s) Family History Reviewed.: Yes Medication/Allergy Home Medications: Amlodipine Besylate [Norvasc 10 mg Tablet] 10 mg PO DAILY 12/24/19 Atorvastatin Calcium [Lipitor 80 mg Tablet] 40 mg PO QHS 12/24/19 Furosemide [Lasix 20 mg Tablet] 20 mg PO QAMP PRN 12/24/19 Gabapentin [Neurontin] 600 mg PO Q12 12/24/19 Irbesartan 150 mg PO BID 12/24/19 Omeprazole 40 mg PO QAM 12/24/19 Insulin Degludec [Tresiba Flextouch U-200] 44 unit SQ BID 01/11/20 Insulin Lispro [Humalog Insulin (Lispro) 100 unit/mL] 0 unit SQ .PERSLIDINGSCALE 01/11/20 Janumet 50-1000mg Tablet 1 tab PO BID 01/11/20 Allergies/Adverse Reactions: ciprofloxacin [From Cipro] Allergy (Unknown, Verified 12/24/19 08:51) Review of Systems Constitutional: PRESENT: weakness. ABSENT: chills, fever(s), headache(s), weight gain, weight loss Eyes: ABSENT: visual disturbances Ears: ABSENT: hearing changes Nose, Mouth, and Throat: ABSENT: headache(s), mouth pain, sore throat, vertigo, other Cardiovascular: ABSENT: chest pain, dyspnea on exertion, edema, orthropnea, palpitations Respiratory: ABSENT: cough, hemoptysis Gastrointestinal: PRESENT: diarrhea, nausea, vomiting. ABSENT: abdominal pain, hematemesis, hematochezia, melena Genitourinary: ABSENT: dysuria, hematuria Musculoskeletal: ABSENT: joint swelling Integumentary: ABSENT: rash, wounds Neurological: ABSENT: abnormal gait, abnormal speech, confusion, dizziness, focal weakness, syncope Psychiatric: ABSENT: anxiety, depression, homidical ideation, suicidal ideation Endocrine: ABSENT: cold intolerance, heat intolerance, polydipsia, polyuria Hematologic/Lymphatic: ABSENT: easy bleeding, easy bruising, lymphadenopathy Allergic/Immunologic: ABSENT: seasonal rhinorrhea Physical Exam Vital Signs: Temp Pulse Resp BP Pulse Ox 99.0 F 18 134/80 H 98 01/10/20 22:30 01/10/20 22:01 01/10/20 22:01 01/10/20 22:01 Intake & Output 01/09/20 01/10/20 01/11/20 06:59 06:59 06:59 Intake Total 50 Balance 50 Weight 136 kg General appearance: PRESENT: no acute distress, obese Head exam: PRESENT: atraumatic, normocephalic Eye exam: PRESENT: conjunctiva pink, EOMI, PERRLA. ABSENT: scleral icterus Ear exam: PRESENT: normal external ear exam Mouth exam: PRESENT: moist, tongue midline Neck exam: PRESENT: full ROM. ABSENT: carotid bruit, JVD, lymphadenopathy, thyromegaly Respiratory exam: PRESENT: clear to auscultation kristi Cardiovascular exam: PRESENT: RRR, +S1, +S2. ABSENT: diastolic murmur, rubs, systolic murmur Pulses: PRESENT: normal dorsalis pedis pul, +2 pedal pulses bilateral Vascular exam: PRESENT: normal capillary refill. ABSENT: pallor GI/Abdominal exam: PRESENT: normal bowel sounds, soft. ABSENT: distended, guarding, mass, organolmegaly, rebound, tenderness Rectal exam: PRESENT: deferred Extremities exam: PRESENT: pedal edema Neurological exam: PRESENT: alert, awake, oriented to person, oriented to place, oriented to time, oriented to situation, CN II-XII grossly intact. ABSENT: motor sensory deficit Psychiatric exam: PRESENT: appropriate affect, normal mood. ABSENT: homicidal ideation, suicidal ideation Skin exam: PRESENT: dry, intact, warm. ABSENT: cyanosis, rash Results Laboratory Results: 01/10/20 18:10 01/10/20 18:10 01/10/20 01/10/20 01/10/20 18:10 18:10 18:47 WBC 9.0 RBC 4.42 Hgb 13.3 L Hct 39.6 MCV 90 MCH 30.1 MCHC 33.6 RDW 14.4 H Plt Count 255 Seg Neutrophils % 84.1 H Carbonic Acid Cancelled HCO3/H2CO3 Ratio Cancelled ABG pH Cancelled ABG pCO2 Cancelled ABG pO2 Cancelled ABG HCO3 Cancelled ABG O2 Saturation Cancelled ABG Base Excess Cancelled VBG pH VBG pCO2 VBG HCO3 VBG Base Excess FiO2 Cancelled Sodium 139.0 Potassium 3.4 L Chloride 99 Carbon Dioxide 29 Anion Gap 11 BUN 13 Creatinine 0.85 Est GFR ( Amer) > 60 Glucose 257 H Calcium 8.7 Magnesium 1.8 Total Bilirubin 3.8 H AST 35 Alkaline Phosphatase 91 Total Protein 7.4 Albumin 4.0 Lipase 150.4 01/10/20 19:13 WBC RBC Hgb Hct MCV MCH MCHC RDW Plt Count Seg Neutrophils % Carbonic Acid HCO3/H2CO3 Ratio ABG pH ABG pCO2 ABG pO2 ABG HCO3 ABG O2 Saturation ABG Base Excess VBG pH 7.39 VBG pCO2 47.2 VBG HCO3 27.9 VBG Base Excess 2.2 FiO2 Sodium Potassium Chloride Carbon Dioxide Anion Gap BUN Creatinine Est GFR ( Amer) Glucose Calcium Magnesium Total Bilirubin AST Alkaline Phosphatase Total Protein Albumin Lipase 01/10/20 01/10/20 18:10 18:10 Troponin I < 0.012 NT-Pro-B Natriuret Pep 367 H Impressions: Abdomen Ultrasound 01/10/20 19:09 IMPRESSION: Cholelithiasis. No sonographic evidence for cholecystitis. Fatty infiltrative change to the liver copyright 2011 [employer]- All Rights Reserved Chest/Abdomen CTA 01/10/20 19:10 IMPRESSION: No acute process in the abdomen or pelvis Cholelithiasis Patchy areas of infiltrate in the chest bilaterally. Findings are nonspecific and may BE infectious or inflammatory. Possibility of viral pneumonia is not excluded. Abdomen/Pelvis CT 01/10/20 19:11 IMPRESSION: No acute process in the abdomen or pelvis Cholelithiasis Patchy areas of infiltrate in the chest bilaterally. Findings are nonspecific and may BE infectious or inflammatory. Possibility of viral pneumonia is not excluded. Assessment & Plan - Diagnosis (1) Pneumonia Qualifiers: Pneumonia type: due to unspecified organism Laterality: bilateral Lung location: unspecified part of lung Qualified Code(s): J18.9 - Pneumonia, unspecified organism Is this a current diagnosis for this admission?: Yes Plan: See covering admitting physician orders for details about care plan. (2) Hypoxia Is this a current diagnosis for this admission?: Yes Plan: See covering admitting physician orders for details about care plan. (3) Nausea vomiting and diarrhea Is this a current diagnosis for this admission?: Yes Plan: See covering admitting physician orders for details about care plan. (4) Weakness Is this a current diagnosis for this admission?: Yes Plan: See covering admitting physician orders for details about care plan. (5) Diabetes mellitus type 2 in obese Is this a current diagnosis for this admission?: Yes Plan: See covering admitting physician orders for details about care plan. (6) Hypertension Qualifiers: Hypertension type: essential hypertension Qualified Code(s): I10 - Esse ntial (primary) hypertension Is this a current diagnosis for this admission?: Yes Plan: See covering admitting physician orders for details about care plan. (7) Hyperlipidemia Qualifiers: Hyperlipidemia type: unspecified Qualified Code(s): E78.5 - Hyperlipidemia, unspecified Is this a current diagnosis for this admission?: Yes Plan: See covering admitting physician orders for details about care plan. - Time Time Spent: 50 to 70 Minutes Medications reviewed and adjusted accordingly: Yes Anticipated Discharge Disposition: Home, Self Care Anticipated Discharge Timeframe: within 72 hours - Inpatient Certification Based on my medical assessment, after consideration of the patient's comorbidities, presenting symptoms, or acuity I expect that the services needed warrant INPATIENT care.: Yes I certify that my determination is in accordance with my understanding of Medicare's requirements for reasonable and necessary INPATIENT services [42 CFR 412.3e].: Yes Medical Necessity: Significant Comorbidiites Make Outpatient Treatment Too Risky, Need Close Monitoring Due to Risk of Patient Decompensation, Need For IV Fluids, Need For Continuous Telemetry Monitoring, Need for IV Antibiotics, Risk of Complication if Not Cared For in Hospital, Risk of Diagnosis Which Will Require Inpatient Eval/Care/Monitoring Post Hospital Care: D/C [employer] Architect Documentation - Plan Summary Plan Summary: See covering admitting physician orders for details about care plan.
--- NOTE | 2020-01-11 19:15 | PDOC PROGRESS REPORT ---
Subjective Progress Note for:: 01/11/20 Subjective:: Patient reported some improvement in his condition but continue to experience difficulty with walking. No chest pain or difficulty with breathing. No fever or chills. Reason For Visit: PNEUMONIA WITH HYPOXEMIA,DIABETES MELLITUS TYPE 2, Physical Exam Vital Signs: Temp Pulse Resp BP Pulse Ox 98.5 F 88 17 146/74 H 94 01/11/20 16:00 01/11/20 16:00 01/11/20 16:00 01/11/20 16:00 01/11/20 16:00 Intake & Output 01/10/20 01/11/20 01/12/20 06:59 06:59 06:59 Intake Total 150 1716 Output Total 300 900 Balance -150 816 Weight 131 kg General appearance: PRESENT: no acute distress, obese Head exam: PRESENT: atraumatic, normocephalic Respiratory exam: PRESENT: clear to auscultation kristi Cardiovascular exam: PRESENT: RRR, +S1, +S2. ABSENT: diastolic murmur, rubs, systolic murmur Vascular exam: ABSENT: pallor GI/Abdominal exam: PRESENT: normal bowel sounds, soft. ABSENT: tenderness Extremities exam: ABSENT: pedal edema Neurological exam: PRESENT: alert, awake, oriented to person, oriented to place, oriented to time, oriented to situation, CN II-XII grossly intact. ABSENT: motor sensory deficit Psychiatric exam: PRESENT: appropriate affect, normal mood. ABSENT: homicidal ideation, suicidal ideation Skin exam: PRESENT: dry, warm Results Laboratory Results: 01/11/20 05:10 01/11/20 05:10 01/10/20 01/10/20 01/11/20 18:47 19:13 05:10 WBC RBC Hgb Hct MCV MCH MCHC RDW Plt Count Seg Neutrophils % Carbonic Acid Cancelled HCO3/H2CO3 Ratio Cancelled ABG pH Cancelled ABG pCO2 Cancelled ABG pO2 Cancelled ABG HCO3 Cancelled ABG O2 Saturation Cancelled ABG Base Excess Cancelled VBG pH 7.39 VBG pCO2 47.2 VBG HCO3 27.9 VBG Base Excess 2.2 FiO2 Cancelled Sodium Potassium Chloride Carbon Dioxide Anion Gap BUN Creatinine Est GFR ( Amer) Glucose Calcium Total Bilirubin AST Alkaline Phosphatase C-Reactive Protein 54.3 H Total Protein Albumin Triglycerides 83 01/11/20 01/11/20 05:10 05:10 WBC 7.5 RBC 4.14 L Hgb 12.5 L Hct 37.1 L MCV 90 MCH 30.2 MCHC 33.7 RDW 14.5 H Plt Count 225 Seg Neutrophils % 84.7 H Carbonic Acid HCO3/H2CO3 Ratio ABG pH ABG pCO2 ABG pO2 ABG HCO3 ABG O2 Saturation ABG Base Excess VBG pH VBG pCO2 VBG HCO3 VBG Base Excess FiO2 Sodium 139.1 Potassium 3.6 Chloride 102 Carbon Dioxide 24 Anion Gap 13 BUN 21 H Creatinine 0.81 Est GFR ( Amer) > 60 Glucose 395 H Calcium 8.4 Total Bilirubin 2.9 H AST 31 Alkaline Phosphatase 83 C-Reactive Protein Total Protein 6.6 Albumin 3.5 Triglycerides 01/10/20 01/10/20 18:10 18:10 Troponin I < 0.012 NT-Pro-B Natriuret Pep 367 H Impressions: Abdomen Ultrasound 01/10/20 19:09 IMPRESSION: Cholelithiasis. No sonographic evidence for cholecystitis. Fatty infiltrative change to the liver copyright 2011 [employer]- All Rights Reserved Chest/Abdomen CTA 01/10/20 19:10 IMPRESSION: No acute process in the abdomen or pelvis Cholelithiasis Patchy areas of infiltrate in the chest bilaterally. Findings are nonspecific and may BE infectious or inflammatory. Possibility of viral pneumonia is not excluded. Abdomen/Pelvis CT 01/10/20 19:11 IMPRESSION: No acute process in the abdomen or pelvis Cholelithiasis Patchy areas of infiltrate in the chest bilaterally. Findings are nonspecific and may BE infectious or inflammatory. Possibility of viral pneumonia is not excluded. Assessment & Plan - Diagnosis (1) Pneumonia Qualifiers: Pneumonia type: due to unspecified organism Laterality: bilateral Lung location: unspecified part of lung Qualified Code(s): J18.9 - Pneumonia, unspecified organism Is this a current diagnosis for this admission?: Yes (2) Hypoxia Is this a current diagnosis for this admission?: Yes (3) Nausea vomiting and diarrhea Is this a current diagnosis for this admission?: Yes (4) Weakness Is this a current diagnosis for this admission?: Yes (5) Diabetes mellitus type 2 in obese Is this a current diagnosis for this admission?: Yes (6) Hypertension Qualifiers: Hypertension type: essential hypertension Qualified Code(s): I10 - Essential (primary) hypertension Is this a current diagnosis for this admission?: Yes (7) Hyperlipidemia Qualifiers: Hyperlipidemia type: unspecified Qualified Code(s): E78.5 - Hyperlipidemia, unspecified Is this a current diagnosis for this admission?: Yes - Time Time Spent with patient: 25-34 minutes Level of Care: IMCU Medications reviewed and adjusted accordingly: Yes Anticipated discharge: Home Anticipated DC Timeframe: within 72 hours - Inpatient Certification Based on my medical assessment, after consideration of the patient's comorbidities, presenting symptoms, or acuity I expect that the services needed warrant INPATIENT care.: Yes I certify that my determination is in accordance with my understanding of Medicare's requirements for reasonable and necessary INPATIENT services [42 CFR 412.3e].: Yes Medical Necessity: Significant Comorbidiites Make Outpatient Treatment Too Risky, Need Close Monitoring Due to Risk of Patient Decompensation, Need For IV Fluids, Need For Continuous Telemetry Monitoring, Need for IV Antibiotics, Risk of Complication if Not Cared For in Hospital, Risk of Diagnosis Which Will Require Inpatient Eval/Care/Monitoring Post Hospital Care: D/C [employer] Documentation - Plan Summary Plan Summary: Continue current medication management and restart on his home medication as indicated. Follow up on pending labs. Overall prognosis remain guarded his inflammatory makers are slightly elevated.
--- NOTE | 2020-01-11 20:29 | EKG REPORT ---
SEVERITY:- ABNORMAL ECG - SINUS RHYTHM INFERIOR INFARCT, AGE INDETERMINATE ANTEROLATERAL INFARCT, OLD : Confirmed by: Brenton Thompson 11-Jan-2020 20:29:08
[2020-01-11] MEDS: GABAPENTIN 300 MG CAPSULE PO SCH (21:34)
[2020-01-11] MEDS: CEFTRIAXONE 1 GM/D5W RTU 1 GM/50 ML RTUPB IV SCH (21:44)
[2020-01-11] MEDS ORDERED: ATORVASTATIN CALCIUM 80 MG TABLET PO SCH (22:00)
[2020-01-11] MEDS: AZITHROMYCIN 500 MG in DEXTROSE 5%-WATER 250 ML IV SCH (23:32)
[2020-01-12 00:35] LABS: APPEARANCE,URINE CLEAR; BILIRUBIN,URINE NEGATIVE (NEGATIVE); COLOR,URINE YELLOW; GLUCOSE, URINE >=500 mg/dL (NEGATIVE); KETONES,URINE NEGATIVE (NEGATIVE); LEUKOCYTE ESTERASE,URINE NEGATIVE (NEGATIVE); NITRITE,URINE NEGATIVE (NEGATIVE); PROTEIN,URINE 30 mg/dL (NEGATIVE); URINE SPECIFIC GRAVITY 1.027; UROBILINOGEN,URINE NEGATIVE mg/dL (<2.0)
[2020-01-12] MEDS: DEXAMETHASONE SOD PHOSPHATE INJ 4 MG/1 ML VIAL IV SCH ×3 (05:24→21:19)
[2020-01-12] MEDS: PANTOPRAZOLE SODIUM 40 MG TABLET.DR PO SCH (05:24)
[2020-01-12] MEDS: INSULIN LISPRO 100 UNIT/ML 3 ML VIAL SUBCUT SCH ×4 (08:07→21:59)
[2020-01-12] MEDS: ZINC SULFATE 220 MG CAPSULE PO SCH (09:09)
[2020-01-12] MEDS: LOSARTAN POTASSIUM 50 MG TABLET PO SCH ×2 (09:09→17:14)
[2020-01-12] MEDS: AMLODIPINE BESYLATE 10 MG TABLET PO SCH (09:09)
[2020-01-12] MEDS: ASCORBIC ACID 500 MG TABLET PO SCH ×2 (09:09→17:14)
[2020-01-12] MEDS: METFORMIN HCL 500 MG TABLET PO SCH ×2 (09:09→17:14)
[2020-01-12] MEDS: SITAGLIPTIN PHOSPHATE 50 MG TABLET PO SCH ×2 (09:10→17:13)
[2020-01-12] MEDS: GABAPENTIN 300 MG CAPSULE PO SCH ×2 (09:10→21:21)
[2020-01-12] MEDS: ENOXAPARIN SODIUM INJ 40 MG/0.4 ML DISP.SYRIN SUBCUT SCH (09:10)
--- NOTE | 2020-01-12 09:22 | RADIOLOGY REPORT (SQ) ---
EXAM DESCRIPTION: CHEST SINGLE VIEW IMAGES COMPLETED DATE/TIME: 01/12/2020 8:49 am REASON FOR STUDY: sob COMPARISON: 01/10/2020 EXAM PARAMETERS: NUMBER OF VIEWS: One view. TECHNIQUE: Single frontal radiographic view of the chest acquired. RADIATION DOSE: NA LIMITATIONS: None. FINDINGS: LUNGS AND PLEURA: New patchy right basilar airspace disease. No significant pleural effus ion. No pneumothorax. MEDIASTINUM AND HILAR STRUCTURES: No masses. Contour normal. HEART AND VASCULAR STRUCTURES: Normal heart size. Vascular calcifications. BONES: No acute findings. HARDWARE: Loop recorder overlies left chest. OTHER: No other significant finding. IMPRESSION: New patchy right basilar airspace disease suspicious for pneumonia. TECHNICAL DOCUMENTATION: JOB ID: [id number] 2010 [employer]- All Rights Reserved Reading location - IP/workstation name: [email or web address]
[2020-01-12 09:31] LABS: ARTERIAL BLOOD BASE EXCESS 0 mmol/L; ARTERIAL BLOOD H2CO3 1.04 mmol/L (1.05-1.35); ARTERIAL BLOOD HCO3 23.2 mmol/L (20-24); ARTERIAL BLOOD O2 SATURATION 94.8 % (94-98); ARTERIAL BLOOD PCO2 34.4 mmHg (35-45); ARTERIAL BLOOD PH 7.45 (7.35-7.45); ARTERIAL BLOOD PO2 69.5 mmHg (80-100); ARTERIAL BLOOD TOTAL CO2 24.3 mmol/L (23-27)
[2020-01-12 09:47] LABS: ARTERIAL BLOOD FIO2 2L
--- NOTE | 2020-01-12 10:32 | PDOC PROGRESS REPORT ---
Subjective Progress Note for:: 01/12/20 Subjective:: Patient is currently doing fair No cough no congestions No fever Patient was admitted because of the weakness and a pneumonia to rule out the COVID Patient is currently on the dexamethasone will reduce the dose and also continues to current medications Reason For Visit: PNEUMONIA WITH HYPOXEMIA,DIABETES MELLITUS TYPE 2, Physical Exam Vital Signs: Temp Pulse Resp BP Pulse Ox 99.1 F 93 20 175/86 H 94 01/12/20 09:48 01/12/20 07:33 01/12/20 07:33 01/12/20 07:33 01/12/20 07:33 Intake & Output 01/11/20 01/12/20 01/13/20 06:59 06:59 06:59 Intake Total 150 2718 Output Total 300 1300 Balance -150 1418 Weight 131 kg 129.8 kg Results Laboratory Results: 01/11/20 05:10 01/11/20 05:10 01/11/20 01/12/20 23:45 08:58 Carbonic Acid 1.04 L HCO3/H2CO3 Ratio 22:1 ABG pH 7.45 ABG pCO2 34.4 L ABG pO2 69.5 L ABG HCO3 23.2 ABG O2 Saturation 94.8 ABG Base Excess 0 FiO2 2L Urine Color YELLOW Urine Appearance CLEAR Urine pH 6.0 Ur Specific [place] 1.027 Urine Protein 30 H Urine Glucose (UA) >=500 H Urine Ketones NEGATIVE Urine Blood NEGATIVE Urine Nitrite NEGATIVE Ur Leukocyte Esterase NEGATIVE Urine WBC (Auto) 0 Urine RBC (Auto) 0 01/10/20 01/10/20 18:10 18:10 Troponin I < 0.012 NT-Pro-B Natriuret Pep 367 H Impressions: Abdomen Ultrasound 01/10/20 19:09 IMPRESSION: Cholelithiasis. No sonographic evidence for cholecystitis. Fatty infiltrative change to the liver copyright 2011 [employer]- All Rights Reserved Chest/Abdomen CTA 01/10/20 19:10 IMPRESSION: No acute process in the abdomen or pelvis Cholelithiasis Patchy areas of infiltrate in the chest bilaterally. Findings are nonspecific and may BE infectious or inflammatory. Possibility of viral pneumonia is not excluded. Abdomen/Pelvis CT 01/10/20 19:11 IMPRESSION: No acute process in the abdomen or pelvis Cholelithiasis Patchy areas of infiltrate in the chest bilaterally. Findings are nonspecific and may BE infectious or inflammatory. Possibility of viral pneumonia is not excluded. Chest X-Ray 01/12/20 00:00 IMPRESSION: New patchy right basilar airspace disease suspicious for pneumonia. Assessment & Plan - Diagnosis (1) Hypoxia Is this a current diagnosis for this admission?: Yes Plan: Most likely due to the pneumonia will rule out the COVID (2) Pneumonia Qualifiers: Pneumonia type: due to unspecified organism Laterality: bilateral Lung location: unspecified part of lung Qualified Code(s): J18.9 - Pneumonia, unspecified organism Is this a current diagnosis for this admission?: Yes Plan: Continues to current IV antibiotic will continues a dexamethasone 3 mg IV twice a day (3) Weakness Is this a current diagnosis for this admission?: Yes Plan: Patient is to do physical therapy evaluations (4) Cerebrovascular disease Is this a current diagnosis for this admission?: Yes (5) Hypertension Qualifiers: Hypertension type: essential hypertension Qualified Code(s): I10 - Essential (primary) hypertension Is this a current diagnosis for this admission?: Yes Plan: Adjust the medications (6) Prostate cancer Is this a current diagnosis for this admission?: Yes - Time Time Spent with patient: 15-24 minutes Level of Care: IMCU Medications reviewed and adjusted accordingly: Yes Anticipated discharge: Home with Homehealth Anticipated DC Timeframe: Other - Plan Summary Plan Summary: Continues to current medications Discuss with the nursing staff about the patient's current conditions readjust the medications
[2020-01-12] MEDS ORDERED: REMDESIVIR (EUA) 200 MG in NORMAL SALINE 250 ML IV ONE (14:00)
[2020-01-12] MEDS: ATORVASTATIN CALCIUM 40 MG TABLET PO SCH (21:20)
[2020-01-12] MEDS: CEFTRIAXONE 1 GM/D5W RTU 1 GM/50 ML RTUPB IV SCH (21:20)
[2020-01-12] MEDS: AZITHROMYCIN 500 MG in DEXTROSE 5%-WATER 250 ML IV SCH (22:03)
[2020-01-13] MEDS: PANTOPRAZOLE SODIUM 40 MG TABLET.DR PO SCH (05:17)
[2020-01-13 06:23] LABS: ABSOLUTE LYMPHOCYTES (AUTO) 0.8 10^3/uL (0.5-4.7); ABSOLUTE MONOCYTES (AUTO) 0.9 10^3/uL (0.1-1.4); ABSOLUTE NEUT (AUTO) 10.7 10^3/uL (1.7-8.2); BASOPHILS % (AUTO) 0.3 % (0-2); HEMATOCRIT 34.7 % (37.9-51.0); HEMOGLOBIN 11.6 g/dL (13.5-17.0); LYMPHOCYTES % (AUTO) 6.7 % (13-45); MEAN CORPUSCULAR HEMOGLOBIN 29.9 pg (27.0-33.4); MEAN CORPUSCULAR HGB CONC 33.3 g/dL (32.0-36.0); MEAN CORPUSCULAR VOLUME 90 fl (80-97); MONOCYTES % (AUTO) 6.9 % (3-13); PLATELET COUNT 243 10^3/uL (150-450); RED BLOOD COUNT 3.87 10^6/uL (4.35-5.55); RED CELL DISTRIBUTION WIDTH 14.5 % (11.5-14.0); SEGMENTED NEUTROPHILS % (AUTO) 86.1 % (42-78); TOTAL CELLS COUNTED % (AUTO) 100 %; WHITE BLOOD COUNT 12.4 10^3/uL (4.0-10.5)
[2020-01-13 06:56] LABS: ANION GAP 9 (5-19); BLOOD UREA NITROGEN 19 mg/dL (7-20); CALCIUM 8.2 mg/dL (8.4-10.2); CARBON DIOXIDE 28 mmol/L (22-30); CHLORIDE 102 mmol/L (98-107); GLUCOSE 243 mg/dL (75-110); POTASSIUM 3.6 mmol/L (3.6-5.0)
[2020-01-13] MEDS ORDERED: DEXTROSE 40% GEL 15 GM TUBE PO PRN ×2 (07:56)
[2020-01-13] MEDS ORDERED: GLUCAGON,HUMAN RECOMB 1 MG INJ IM PRN (07:56)
[2020-01-13] MEDS ORDERED: DEXTROSE 50%-WATER 25 GM/50 ML DISP.SYRIN IV PRN ×2 (07:56)
[2020-01-13] MEDS: INSULIN LISPRO 100 UNIT/ML 3 ML VIAL SUBCUT SCH ×4 (08:32→22:10)
[2020-01-13 09:52] LABS: ARTERIAL BLOOD FIO2 2L; ARTERIAL BLOOD H2CO3 1.17 mmol/L (1.05-1.35); ARTERIAL BLOOD HCO3 26.9 mmol/L (20-24); ARTERIAL BLOOD O2 SATURATION 92.7 % (94-98); ARTERIAL BLOOD PH 7.46 (7.35-7.45); ARTERIAL BLOOD PO2 61.4 mmHg (80-100); ARTERIAL BLOOD TOTAL CO2 28.1 mmol/L (23-27)
[2020-01-13] MEDS ORDERED: INSULIN DEGLUDEC 50 UNIT SQ SCH (10:00)
[2020-01-13] MEDS ORDERED: (PENDING PHARMACY ID) (Insulin Degludec [Tresiba Flextouch U-200] 40 UNIT) SQ SCH (10:00)
[2020-01-13] MEDS: GABAPENTIN 300 MG CAPSULE PO SCH ×2 (10:18→22:09)
[2020-01-13] MEDS: ZINC SULFATE 220 MG CAPSULE PO SCH (10:18)
[2020-01-13] MEDS: LOSARTAN POTASSIUM 50 MG TABLET PO SCH ×2 (10:19→17:10)
[2020-01-13] MEDS: METFORMIN HCL 500 MG TABLET PO SCH ×2 (10:19→17:10)
[2020-01-13] MEDS: SITAGLIPTIN PHOSPHATE 50 MG TABLET PO SCH ×2 (10:19→17:10)
[2020-01-13] MEDS: ASCORBIC ACID 500 MG TABLET PO SCH ×2 (10:19→17:10)
[2020-01-13] MEDS: DEXAMETHASONE SOD PHOSPHATE INJ 4 MG/1 ML VIAL IV SCH ×2 (10:19→22:10)
[2020-01-13] MEDS: ENOXAPARIN SODIUM INJ 40 MG/0.4 ML DISP.SYRIN SUBCUT SCH (10:19)
[2020-01-13] MEDS: AMLODIPINE BESYLATE 10 MG TABLET PO SCH (10:19)
--- NOTE | 2020-01-13 10:20 | RADIOLOGY REPORT (SQ) ---
EXAM DESCRIPTION: CT HEAD WITHOUT IMAGES COMPLETED DATE/TIME: 01/13/2020 10:04 am REASON FOR STUDY: ams/h/o stroke COMPARISON: 12/24/2019. TECHNIQUE: Axial images acquired through the brain without intravenous contrast. Images reviewed wi th bone, brain and subdural windows. Additional sagittal and coronal reconstructions were generated. Images stored on PACS. All CT scanners at this facility use dose modulation, iterative reconstruction, and/or weight based d osing when appropriate to reduce radiation dose to as low as reasonably achievable (ALARA). [facility]: Dose Right [facility]: CareDose [facility]: Dose Right [facility]: Teradose 4D [facility]: LATTO RADIATION DOSE: CT Rad equipment meets quality standard of care and radiation dose reduction techniq ues were employed. CTDIvol: 48.5 mGy. DLP: 904 mGy-cm.mGy. LIMITATIONS: None. FINDINGS: VENTRICLES: Prominent. CEREBRUM: No masses. No hemorrhage. No midline shift. Areas of low density in the white matter mos t likely due to chronic micro-vascular ischemic change. No evidence for acute infarction. CEREBELLUM: No masses. No hemorrhage. No alteration of density. No evidence for acute infarction. EXTRAAXIAL SPACES: Age-related involutional change. No fluid collections. No masses. ORBITS AND GLOBE: No intra- or extraconal masses. Normal contour of globe without masses. CALVARIUM: No fracture. PARANASAL SINUSES: Nodular mucous membrane thickening in the maxillary sinuses. SOFT TISSUES: No mass or hematoma. OTHER: No other significant finding. IMPRESSION: CHRONIC CHANGES OF ATROPHY AND MICROVASCULAR ISCHEMIA. MAXILLARY SINUS DISEASE. NO ACU TE PROCESS. EVIDENCE OF ACUTE STROKE: NO. TECHNICAL DOCUMENTATION: JOB ID: [id number] Quality ID # [id number]: Final reports with documentation of one or more dose reduction techniques (e.g., Au tomated exposure control, adjustment of the mA and/or kV according to patient size, use of iterative reconstruction technique) 2010 [email or web address]- All Rights Reserved Reading location - IP/workstation name: [email or web address]
[2020-01-13] MEDS ORDERED: INSULIN GLARGINE,HUM.REC.ANLOG 1,000 UNIT/10 ML VIAL (PYX) SUBCUT ONE (10:22)
[2020-01-13] MEDS: INSULIN GLARGINE,HUM.REC.ANLOG 1,000 UNIT/10 ML VIAL SUBCUT SCH ×2 (10:23→22:09)
[2020-01-13] MEDS: REMDESIVIR (EUA) 100 MG in NORMAL SALINE 250 ML IV SCH (10:24)
--- NOTE | 2020-01-13 13:41 | PDOC PROGRESS REPORT ---
Subjective Progress Note for:: 01/13/20 Subjective:: Patient is feeling better Morning nursing concern about some kind of lethargic but that patient normally usually responds but CT of the head was done was negative due to the history of the subdural hematoma in the past Patient is feeling better denied any chest pain no short of breath No fever Still having some cough Still need oxygen Reason For Visit: PNEUMONIA WITH HYPOXEMIA,DIABETES MELLITUS TYPE 2, Physical Exam Vital Signs: Temp Pulse Resp BP Pulse Ox 97.7 F 91 19 182/68 H 92 01/13/20 11:22 01/13/20 11:22 01/13/20 11:22 01/13/20 11:22 01/13/20 11:22 Intake & Output 01/12/20 01/13/20 01/14/20 06:59 06:59 06:59 Intake Total 2968 2260 Output Total 1300 650 Balance 1668 1610 Weight 129.8 kg 128.9 kg General appearance: PRESENT: no acute distress, well-developed, well-nourished Head exam: PRESENT: atraumatic, normocephalic Eye exam: PRESENT: conjunctiva pink, EOMI, PERRLA. ABSENT: scleral icterus Ear exam: PRESENT: normal external ear exam Mouth exam: PRESENT: moist, tongue midline Neck exam: PRESENT: full ROM. ABSENT: carotid bruit, JVD, lymphadenopathy, thy romegaly Cardiovascular exam: PRESENT: RRR. ABSENT: diastolic murmur, rubs, systolic murmur Vascular exam: PRESENT: normal capillary refill GI/Abdominal exam: PRESENT: normal bowel sounds, soft. ABSENT: distended, guarding, mass, organolmegaly, rebound, tenderness Rectal exam: PRESENT: deferred Neurological exam: PRESENT: alert, awake, oriented to person, oriented to place, oriented to time, oriented to situation, CN II-XII grossly intact. ABSENT: motor sensory deficit Psychiatric exam: PRESENT: appropriate affect, normal mood. ABSENT: homicidal ideation, suicidal ideation Skin exam: PRESENT: dry, intact, warm. ABSENT: cyanosis, rash Results Laboratory Results: 01/13/20 05:02 01/13/20 05:02 01/13/20 01/13/20 01/13/20 05:02 05:02 09:15 WBC 12.4 H RBC 3.87 L Hgb 11.6 L Hct 34.7 L MCV 90 MCH 29.9 MCHC 33.3 RDW 14.5 H Plt Count 243 Seg Neutrophils % 86.1 H Carbonic Acid 1.17 HCO3/H2CO3 Ratio 22:1 ABG pH 7.46 H ABG pCO2 39.0 ABG pO2 61.4 L ABG HCO3 26.9 H ABG O2 Saturation 92.7 L ABG Base Excess 3.0 FiO2 2L Sodium 139.3 Potassium 3.6 Chloride 102 Carbon Dioxide 28 Anion Gap 9 BUN 19 Creatinine 0.63 Est GFR ( Amer) > 60 Glucose 243 H Calcium 8.2 L 01/10/20 01/10/20 18:10 18:10 Troponin I < 0.012 NT-Pro-B Natriuret Pep 367 H Impressions: Abdomen Ultrasound 01/10/20 19:09 IMPRESSION: Cholelithiasis. No sonographic evidence for cholecystitis. Fatty infiltrative change to the liver copyright 2011 [employer] [facility]- All Rights Reserved Chest/Abdomen CTA 01/10/20 19:10 IMPRESSION: No acute process in the abdomen or pelvis Cholelithiasis Patchy areas of infiltrate in the chest bilaterally. Findings are nonspecific and may BE infectious or inflammatory. Possibility of viral pneumonia is not excluded. Abdomen/Pelvis CT 01/10/20 19:11 IMPRESSION: No acute process in the abdomen or pelvis Cholelithiasis Patchy areas of infiltrate in the chest bilaterally. Findings are nonspecific and may BE infectious or inflammatory. Possibility of viral pneumonia is not excluded. Chest X-Ray 01/12/20 00:00 IMPRESSION: New patchy right basilar airspace disease suspicious for pneumonia. Head CT 01/13/20 00:00 IMPRESSION: CHRONIC CHANGES OF ATROPHY AND MICROVASCULAR ISCHEMIA. MAXILLARY SINUS DISEASE. NO ACUTE PROCESS. EVIDENCE OF ACUTE STROKE: NO. Assessment & Plan - Diagnosis (1) Hypoxia Is this a current diagnosis for this admission?: Yes Plan: Due to the COVID pneumonia (2) Pneumonia Qualifiers: Pneumonia type: due to unspecified organism Laterality: bilateral Lung location: unspecified part of lung Qualified Code(s): J18.9 - Pneumonia, unspecified organism Is this a current diagnosis for this admission?: Yes Plan: Continues the current medications (3) Weakness Is this a current diagnosis for this admission?: Yes (4) Cerebrovascular disease Is this a current diagnosis for this admission?: Yes (5) Hypertension Qualifiers: Hypertension type: essential hypertension Qualified Code(s): I10 - Essential (primary) hypertension Is this a current diagnosis for this admission?: Yes Plan: Adjust the medications (6) Prostate cancer Is this a current diagnosis for this admission?: Yes (7) COVID-19 Is this a current diagnosis for this admission?: Yes Plan: Continues the antiviral drugs continues the dexamethasone continues the IV antibiotic (8) Diabetes mellitus Qualifiers: Diabetes mellitus long-term insulin use: unspecified long-term insulin use status Diabetes mellitus complication status: without complication Is this a current diagnosis for this admission?: Yes Plan: Patients does not receive the Tresiba because nonformulary will start on the Lantus - Time Time Spent with patient: 15-24 minutes Level of Care: IMCU Medications reviewed and adjusted accordingly: Yes Anticipated discharge: Home Anticipated DC Timeframe: Other - Plan Summary Plan Summary: Continues the current medications discussed with the regarding the patient' s current conditions
[2020-01-13] MEDS: CEFTRIAXONE 1 GM/D5W RTU 1 GM/50 ML RTUPB IV SCH (22:09)
[2020-01-13] MEDS: ATORVASTATIN CALCIUM 40 MG TABLET PO SCH (22:09)
[2020-01-13] MEDS: AZITHROMYCIN 500 MG in DEXTROSE 5%-WATER 250 ML IV SCH (23:34)
[2020-01-14] MEDS: PANTOPRAZOLE SODIUM 40 MG TABLET.DR PO SCH (06:14)
[2020-01-14 07:07] LABS: ABSOLUTE BASOPHILS # (AUTO) 0.1 10^3/uL (0.0-0.2); ABSOLUTE LYMPHOCYTES (AUTO) 0.9 10^3/uL (0.5-4.7); ABSOLUTE MONOCYTES (AUTO) 0.7 10^3/uL (0.1-1.4); ABSOLUTE NEUT (AUTO) 9.1 10^3/uL (1.7-8.2); BASOPHILS % (AUTO) 0.7 % (0-2); EOSINOPHILS % (AUTO) 0.3 % (0-6); HEMATOCRIT 36.3 % (37.9-51.0); HEMOGLOBIN 12.1 g/dL (13.5-17.0); MEAN CORPUSCULAR HEMOGLOBIN 29.9 pg (27.0-33.4); MEAN CORPUSCULAR HGB CONC 33.5 g/dL (32.0-36.0); MEAN CORPUSCULAR VOLUME 89 fl (80-97); MONOCYTES % (AUTO) 6.7 % (3-13); PLATELET COUNT 253 10^3/uL (150-450); RED BLOOD COUNT 4.06 10^6/uL (4.35-5.55); RED CELL DISTRIBUTION WIDTH 14.3 % (11.5-14.0); SEGMENTED NEUTROPHILS % (AUTO) 84.3 % (42-78); TOTAL CELLS COUNTED % (AUTO) 100 %; WHITE BLOOD COUNT 10.8 10^3/uL (4.0-10.5)
[2020-01-14 07:32] LABS: ANION GAP 9 (5-19); BLOOD UREA NITROGEN 15 mg/dL (7-20); CALCIUM 8.2 mg/dL (8.4-10.2); CARBON DIOXIDE 29 mmol/L (22-30); CHLORIDE 100 mmol/L (98-107); GLUCOSE 195 mg/dL (75-110); POTASSIUM 3.8 mmol/L (3.6-5.0)
[2020-01-14] MEDS: GABAPENTIN 300 MG CAPSULE PO SCH ×2 (09:11→22:15)
[2020-01-14] MEDS: METFORMIN HCL 500 MG TABLET PO SCH ×2 (09:12→16:59)
[2020-01-14] MEDS: LOSARTAN POTASSIUM 50 MG TABLET PO SCH ×2 (09:12→17:00)
[2020-01-14] MEDS: ASCORBIC ACID 500 MG TABLET PO SCH ×2 (09:13→17:00)
[2020-01-14] MEDS: SITAGLIPTIN PHOSPHATE 50 MG TABLET PO SCH ×2 (09:13→17:00)
[2020-01-14] MEDS: DEXAMETHASONE SOD PHOSPHATE INJ 4 MG/1 ML VIAL IV SCH ×2 (09:13→22:12)
[2020-01-14] MEDS: ENOXAPARIN SODIUM INJ 40 MG/0.4 ML DISP.SYRIN SUBCUT SCH (09:14)
[2020-01-14] MEDS: INSULIN LISPRO 100 UNIT/ML 3 ML VIAL SUBCUT SCH ×4 (09:14→22:14)
[2020-01-14] MEDS: ZINC SULFATE 220 MG CAPSULE PO SCH (09:14)
[2020-01-14] MEDS: AMLODIPINE BESYLATE 10 MG TABLET PO SCH (09:15)
[2020-01-14] MEDS: REMDESIVIR (EUA) 100 MG in NORMAL SALINE 250 ML IV SCH (09:17)
--- NOTE | 2020-01-14 13:26 | PDOC PROGRESS REPORT ---
Subjective Progress Note for:: 01/14/20 Subjective:: Patient is feeling better No fever no chills No chest pain No short of breath Mild cough Reason For Visit: PNEUMONIA WITH HYPOXEMIA,DIABETES MELLITUS TYPE 2, Physical Exam Vital Signs: Temp Pulse Resp BP Pulse Ox 97.5 F 79 20 154/79 H 90 L 01/14/20 11:19 01/14/20 11:19 01/14/20 11:19 01/14/20 11:19 01/14/20 11:19 Intake & Output 01/13/20 01/14/20 01/15/20 06:59 06:59 06:59 Intake Total 2260 1625 Output Total 650 775 Balance 1610 850 Weight 128.9 kg 131.2 kg General appearance: PRESENT: no acute distress, well-developed, well-nourished Head exam: PRESENT: atraumatic, normocephalic Eye exam: PRESENT: conjunctiva pink, EOMI, PERRLA. ABSENT: scleral icterus Ear exam: PRESENT: normal external ear exam Mouth exam: PRESENT: moist, tongue midline Neck exam: PRESENT: full ROM. ABSENT: carotid bruit, JVD, lymphadenopathy, thyromegaly Cardiovascular exam: PRESENT: RRR. ABSENT: diastolic murmur, rubs, systolic murmur Vascular exam: PRESENT: normal capillary refill GI/Abdominal exam: PRESENT: normal bowel sounds, soft. ABSENT: distended, guarding, mass, organolmegaly, rebound, tenderness Rectal exam: PRESENT: deferred Neurological exam: PRESENT: alert, awake, oriented to person, oriented to place, oriented to time, oriented to situation. ABSENT: motor sensory deficit Psychiatric exam: PRESENT: appropriate affect, normal mood. ABSENT: homicidal ideation, suicidal ideation Skin exam: PRESENT: dry, intact, warm. ABSENT: cyanosis, rash Results Laboratory Results: 01/14/20 05:33 01/14/20 05:33 01/14/20 01/14/20 05:33 05:33 WBC 10.8 H RBC 4.06 L Hgb 12.1 L Hct 36.3 L MCV 89 MCH 29.9 MCHC 33.5 RDW 14.3 H Plt Count 253 Seg Neutrophils % 84.3 H Sodium 137.6 Potassium 3.8 Chloride 100 Carbon Dioxide 29 Anion Gap 9 BUN 15 Creatinine 0.51 L Est GFR ( Amer) > 60 Glucose 195 H Calcium 8.2 L 01/10/20 01/10/20 18:10 18:10 Troponin I < 0.012 NT-Pro-B Natriuret Pep 367 H Impressions: Abdomen Ultrasound 01/10/20 19:09 IMPRESSION: Cholelithiasis. No sonographic evidence for cholecystitis. Fatty infiltrative change to the liver copyright 2011 [email or web address]- All Rights Reserved Chest/Abdomen CTA 01/10/20 19:10 IMPRESSION: No acute process in the abdomen or pelvis Cholelithiasis Patchy areas of infiltrate in the chest bilaterally. Findings are nonspecific and may BE infectious or inflammatory. Possibility of viral pneumonia is not excluded. Abdomen/Pelvis CT 01/10/20 19:11 IMPRESSION: No acute process in the abdomen or pelvis Cholelithiasis Patchy areas of infiltrate in the chest bilaterally. Findings are nonspecific and may BE infectious or inflammatory. Possibility of viral pneumonia is not excluded. Chest X-Ray 01/12/20 00:00 IMPRESSION: New patchy right basilar airspace disease suspicious for pneumonia. Head CT 01/13/20 00:00 IMPRESSION: CHRONIC CHANGES OF ATROPHY AND MICROVASCULAR ISCHEMIA. MAXILLARY S INUS DISEASE. NO ACUTE PROCESS. EVIDENCE OF ACUTE STROKE: NO. Assessment & Plan - Diagnosis (1) Hypoxia Is this a current diagnosis for this admission?: Yes (2) Pneumonia Qualifiers: Pneumonia type: due to unspecified organism Laterality: bilateral Lung location: unspecified part of lung Qualified Code(s): J18.9 - Pneumonia, unspecified organism Is this a current diagnosis for this admission?: Yes Plan: Continues the current medications (3) Weakness Is this a current diagnosis for this admission?: Yes (4) Cerebrovascular disease Is this a current diagnosis for this admission?: Yes (5) Hypertension Qualifiers: Hypertension type: essential hypertension Qualified Code(s): I10 - Essential (primary) hypertension Is this a current diagnosis for this admission?: Yes Plan: Adjust the medications (6) Prostate cancer Is this a current diagnosis for this admission?: Yes (7) COVID-19 Is this a current diagnosis for this admission?: Yes Plan: Continues to current medications (8) Diabetes mellitus Qualifiers: Diabetes mellitus [facility] insulin use: unspecified [facility] insulin use status Diabetes mellitus complication status: without complication Is this a current diagnosis for this admission?: Yes Plan: Currently all stable - Time Time Spent with patient: 15-24 minutes Level of Care: IMCU Medications reviewed and adjusted accordingly: Yes Anticipated discharge: Home with Homehealth Anticipated DC Timeframe: Other - Plan Summary Plan Summary: Discussed with the regarding the patient's current condition update about the all information's and plan patient is currently on no concren discussed with the nursing staff no other concern
[2020-01-14] MEDS: INSULIN GLARGINE,HUM.REC.ANLOG 1,000 UNIT/10 ML VIAL SUBCUT SCH ×2 (14:15→22:15)
[2020-01-14] MEDS: ATORVASTATIN CALCIUM 40 MG TABLET PO SCH (22:15)
[2020-01-14] MEDS: AZITHROMYCIN 500 MG in DEXTROSE 5%-WATER 250 ML IV SCH (22:16)
[2020-01-15] MEDS: CEFTRIAXONE 1 GM/D5W RTU 1 GM/50 ML RTUPB IV SCH ×2 (00:39→21:52)
[2020-01-15 04:51] LABS: ABSOLUTE EOSINOPHILS # (AUTO) 0.1 10^3/uL (0.0-0.6); ABSOLUTE LYMPHOCYTES (AUTO) 0.9 10^3/uL (0.5-4.7); ABSOLUTE MONOCYTES (AUTO) 0.7 10^3/uL (0.1-1.4); ABSOLUTE NEUT (AUTO) 9.3 10^3/uL (1.7-8.2); BASOPHILS % (AUTO) 0.2 % (0-2); EOSINOPHILS % (AUTO) 1.3 % (0-6); HEMATOCRIT 37.3 % (37.9-51.0); HEMOGLOBIN 12.4 g/dL (13.5-17.0); LYMPHOCYTES % (AUTO) 8.4 % (13-45); MEAN CORPUSCULAR HEMOGLOBIN 29.6 pg (27.0-33.4); MEAN CORPUSCULAR HGB CONC 33.4 g/dL (32.0-36.0); MEAN CORPUSCULAR VOLUME 89 fl (80-97); MONOCYTES % (AUTO) 6.3 % (3-13); PLATELET COUNT 259 10^3/uL (150-450); RED CELL DISTRIBUTION WIDTH 14.5 % (11.5-14.0); SEGMENTED NEUTROPHILS % (AUTO) 83.8 % (42-78); TOTAL CELLS COUNTED % (AUTO) 100 %; WHITE BLOOD COUNT 11.1 10^3/uL (4.0-10.5)
[2020-01-15 05:03] LABS: ANION GAP 9 (5-19); BLOOD UREA NITROGEN 15 mg/dL (7-20); CALCIUM 8.3 mg/dL (8.4-10.2); CARBON DIOXIDE 29 mmol/L (22-30); CHLORIDE 100 mmol/L (98-107); GLUCOSE 175 mg/dL (75-110); POTASSIUM 3.7 mmol/L (3.6-5.0)
[2020-01-15] MEDS: PANTOPRAZOLE SODIUM 40 MG TABLET.DR PO SCH (05:31)
--- NOTE | 2020-01-15 09:23 | PDOC PROGRESS REPORT ---
Subjective Progress Note for:: 01/15/20 Subjective:: Patient is feeling better No fever no chills No chest pain No short of breath Mild cough Reason For Visit: PNEUMONIA WITH HYPOXEMIA,DIABETES MELLITUS TYPE 2, Physical Exam Vital Signs: Temp Pulse Resp BP Pulse Ox 97.8 F 84 16 131/54 H 89 L 01/15/20 07:57 01/15/20 07:00 01/15/20 04:02 01/15/20 04:02 01/15/20 04:02 Intake & Output 01/14/20 01/15/20 01/16/20 06:59 06:59 06:59 Intake Total 1625 300 Output Total 775 350 Balance 850 -50 Weight 131.2 kg 131.2 kg General appearance: PRESENT: no acute distress, well-developed, well-nourished Head exam: PRESENT: atraumatic, normocephalic Eye exam: PRESENT: conjunctiva pink, EOMI, PERRLA. ABSENT: scleral icterus Ear exam: PRESENT: normal external ear exam Mouth exam: PRESENT: moist, tongue midline Neck exam: PRESENT: full ROM. ABSENT: carotid bruit, JVD, lymphadenopathy, thyromegaly Cardiovascular exam: PRESENT: RRR. ABSENT: diastolic murmur, rubs, systolic murmur Vascular exam: PRESENT: normal capillary refill GI/Abdominal exam: PRESENT: normal bowel sounds, soft. ABSENT: distended, guarding, mass, organolmegaly, rebound, tenderness Rectal exam: PRESENT: deferred Musculoskeletal exam: PRESENT: ambulatory Neurological exam: PRESENT: alert, awake, oriented to person, oriented to place, oriented to time, oriented to situation, CN II-XII grossly intact. ABSENT: debora r sensory deficit Psychiatric exam: PRESENT: appropriate affect, normal mood. ABSENT: homicidal ideation, suicidal ideation Skin exam: PRESENT: dry, intact, warm. ABSENT: cyanosis, rash Results Laboratory Results: 01/15/20 04:19 01/15/20 04:19 01/15/20 01/15/20 04:19 04:19 WBC 11.1 H RBC 4.20 L Hgb 12.4 L Hct 37.3 L MCV 89 MCH 29.6 MCHC 33.4 RDW 14.5 H Plt Count 259 Seg Neutrophils % 83.8 H Sodium 137.8 Potassium 3.7 Chloride 100 Carbon Dioxide 29 Anion Gap 9 BUN 15 Creatinine 0.50 L Est GFR ( Amer) > 60 Glucose 175 H Calcium 8.3 L 01/10/20 01/10/20 18:10 18:10 Troponin I < 0.012 NT-Pro-B Natriuret Pep 367 H Impressions: Abdomen Ultrasound 01/10/20 19:09 IMPRESSION: Cholelithiasis. No sonographic evidence for cholecystitis. Fatty infiltrative change to the liver copyright 2011 [employer]- All Rights Reserved Chest/Abdomen CTA 01/10/20 19:10 IMPRESSION: No acute process in the abdomen or pelvis Cholelithiasis Patchy areas of infiltrate in the chest bilaterally. Findings are nonspecific and may BE infectious or inflammatory. Possibility of viral pneumonia is not excluded. Abdomen/Pelvis CT 01/10/20 19:11 IMPRESSION: No acute process in the abdomen or pelvis Cholelithiasis Patchy areas of infiltrate in the chest bilaterally. Findings are nonspecific and may BE infectious or inflammatory. Possibility of viral pneumonia is not excluded. Chest X-Ray 01/12/20 00:00 IMPRESSION: New patchy right basilar airspace disease suspicious for pneumonia. Head CT 01/13/20 00:00 IMPRESSION: CHRONIC CHANGES OF ATROPHY AND MICROVASCULAR ISCHEMIA. MAXILLARY SINUS DISEASE. NO ACUTE PROCESS. EVIDENCE OF ACUTE STROKE: NO. Assessment & Plan - Diagnosis (1) Hypoxia Is this a current diagnosis for this admission?: Yes (2) Pneumonia Qualifiers: Pneumonia type: due to unspecified organism Laterality: bilateral Lung location: unspecified part of lung Qualified Code(s): J18.9 - Pneumonia, unspecified organism Is this a current diagnosis for this admission?: Yes (3) Weakness Is this a current diagnosis for this admission?: Yes (4) Cerebrovascular disease Is this a current diagnosis for this admission?: Yes (5) Hypertension Qualifiers: Hypertension type: essential hypertension Qualified Code(s): I10 - Essential (primary) hypertension Is this a current diagnosis for this admission?: Yes (6) Prostate cancer Is this a current diagnosis for this admission?: Yes (7) COVID-19 Is this a current diagnosis for this admission?: Yes (8) Diabetes mellitus Qualifiers: Diabetes mellitus salvage determiner insulin use: unspecified jail insulin use status Diabetes mellitus complication status: without complication Is this a current diagnosis for this admission?: Yes - Time Time Spent with patient: 15-24 minutes Level of Care: IMCU Medications reviewed and adjusted accordingly: Yes Anticipated discharge: Other Anticipated DC Timeframe: Other - Plan Summary Plan Summary: Currently much better continues to current medications
[2020-01-15] MEDS: METFORMIN HCL 500 MG TABLET PO SCH ×2 (09:39→17:28)
[2020-01-15] MEDS: SITAGLIPTIN PHOSPHATE 50 MG TABLET PO SCH ×2 (09:39→17:28)
[2020-01-15] MEDS: ASCORBIC ACID 500 MG TABLET PO SCH ×2 (09:40→17:28)
[2020-01-15] MEDS: ENOXAPARIN SODIUM INJ 40 MG/0.4 ML DISP.SYRIN SUBCUT SCH (09:41)
[2020-01-15] MEDS: AMLODIPINE BESYLATE 10 MG TABLET PO SCH (09:41)
[2020-01-15] MEDS: ZINC SULFATE 220 MG CAPSULE PO SCH (09:41)
[2020-01-15] MEDS: GABAPENTIN 300 MG CAPSULE PO SCH ×2 (09:41→21:53)
[2020-01-15] MEDS: REMDESIVIR (EUA) 100 MG in NORMAL SALINE 250 ML IV SCH (09:42)
[2020-01-15] MEDS: INSULIN LISPRO 100 UNIT/ML 3 ML VIAL SUBCUT SCH ×4 (09:42→21:53)
[2020-01-15] MEDS: DEXAMETHASONE SOD PHOSPHATE INJ 4 MG/1 ML VIAL IV SCH ×2 (09:43→21:52)
[2020-01-15] MEDS: LOSARTAN POTASSIUM 50 MG TABLET PO SCH ×2 (09:43→17:27)
[2020-01-15] MEDS: INSULIN GLARGINE,HUM.REC.ANLOG 1,000 UNIT/10 ML VIAL SUBCUT SCH ×2 (09:45→21:54)
[2020-01-15 15:44] LABS: ARTERIAL BLOOD BASE EXCESS 6.5 mmol/L; ARTERIAL BLOOD H2CO3 1.47 mmol/L (1.05-1.35); ARTERIAL BLOOD O2 SATURATION 42.5 % (94-98); ARTERIAL BLOOD PCO2 48.9 mmHg (35-45); ARTERIAL BLOOD PH 7.43 (7.35-7.45); ARTERIAL BLOOD TOTAL CO2 33.5 mmol/L (23-27)
[2020-01-15 15:46] LABS: ARTERIAL BLOOD FIO2 ROOM AIR
[2020-01-15 15:48] LABS: ARTERIAL BLOOD PO2 23.5 mmHg (80-100)
[2020-01-15 16:55] LABS: ARTERIAL BLOOD H2CO3 1.09 mmol/L (1.05-1.35); ARTERIAL BLOOD HCO3 27.2 mmol/L (20-24); ARTERIAL BLOOD PCO2 36.2 mmHg (35-45); ARTERIAL BLOOD PH 7.49 (7.35-7.45); ARTERIAL BLOOD TOTAL CO2 28.3 mmol/L (23-27)
[2020-01-15 17:08] LABS: ARTERIAL BLOOD FIO2 2.5L
[2020-01-15] MEDS: ATORVASTATIN CALCIUM 40 MG TABLET PO SCH (21:54)
[2020-01-15] MEDS: AZITHROMYCIN 500 MG in DEXTROSE 5%-WATER 250 ML IV SCH (22:53)
--- NOTE | 2020-01-15 23:51 | RADIOLOGY REPORT (SQ) ---
CT HEAD WITHOUT IV CONTRAST HISTORY: Altered mental status. COMPARISON: 01/13/2020 TECHNIQUE: CT scan of the brain was performed without IV contrast. This exam was performed according to our departmental dose-optimization program, which includes automated exposure control, adjustment of the mA and/or kV according to patient size and/or use of iterative reconstruction technique. FINDINGS: There are scattered areas of hypoattenuation within the periventricular white matter, which likely represent chronic microvascular ischemia. No evidence of acute infarction, intracranial hemorrhage, extra-axial fluid collection, or midline shift. There is sinus mucosal disease in the bilateral maxillary sinuses. The mastoid air cells are clear. No depressed skull fracture. IMPRESSION: 1. No acute intracranial findings. 2. Senescent changes with chronic microvascular ischemia.
[2020-01-16 05:12] LABS: ABSOLUTE BASOPHILS # (AUTO) 0.1 10^3/uL (0.0-0.2); ABSOLUTE EOSINOPHILS # (AUTO) 0.2 10^3/uL (0.0-0.6); ABSOLUTE MONOCYTES (AUTO) 0.8 10^3/uL (0.1-1.4); ABSOLUTE NEUT (AUTO) 9.4 10^3/uL (1.7-8.2); BASOPHILS % (AUTO) 0.6 % (0-2); EOSINOPHILS % (AUTO) 1.7 % (0-6); HEMATOCRIT 36.8 % (37.9-51.0); HEMOGLOBIN 12.2 g/dL (13.5-17.0); LYMPHOCYTES % (AUTO) 8.4 % (13-45); MEAN CORPUSCULAR HEMOGLOBIN 29.5 pg (27.0-33.4); MEAN CORPUSCULAR HGB CONC 33.2 g/dL (32.0-36.0); MEAN CORPUSCULAR VOLUME 89 fl (80-97); MONOCYTES % (AUTO) 7.4 % (3-13); PLATELET COUNT 295 10^3/uL (150-450); RED BLOOD COUNT 4.15 10^6/uL (4.35-5.55); RED CELL DISTRIBUTION WIDTH 14.2 % (11.5-14.0); SEGMENTED NEUTROPHILS % (AUTO) 81.9 % (42-78); TOTAL CELLS COUNTED % (AUTO) 100 %; WHITE BLOOD COUNT 11.4 10^3/uL (4.0-10.5)
[2020-01-16 05:16] LABS: APPEARANCE,URINE CLEAR; BILIRUBIN,URINE NEGATIVE (NEGATIVE); COLOR,URINE YELLOW; GLUCOSE, URINE 150 mg/dL (NEGATIVE); KETONES,URINE NEGATIVE (NEGATIVE); PROTEIN,URINE NEGATIVE (NEGATIVE); URINE SPECIFIC GRAVITY 1.019
[2020-01-16 05:26] LABS: BACTERIA,URINE TRACE /HPF; RBC,URINE RARE /HPF
[2020-01-16 05:34] LABS: ANION GAP 11 (5-19); BLOOD UREA NITROGEN 14 mg/dL (7-20); CALCIUM 8.5 mg/dL (8.4-10.2); CARBON DIOXIDE 26 mmol/L (22-30); CHLORIDE 101 mmol/L (98-107); GLUCOSE 245 mg/dL (75-110)
[2020-01-16] MEDS: PANTOPRAZOLE SODIUM 40 MG TABLET.DR PO SCH (05:51)
[2020-01-16] MEDS: INSULIN LISPRO 100 UNIT/ML 3 ML VIAL SUBCUT SCH ×4 (07:52→22:23)
[2020-01-16] MEDS: LOSARTAN POTASSIUM 50 MG TABLET PO SCH ×2 (09:09→17:05)
[2020-01-16] MEDS: DEXAMETHASONE SOD PHOSPHATE INJ 4 MG/1 ML VIAL IV SCH ×2 (09:09→22:22)
[2020-01-16] MEDS: ENOXAPARIN SODIUM INJ 40 MG/0.4 ML DISP.SYRIN SUBCUT SCH (09:12)
[2020-01-16] MEDS: SITAGLIPTIN PHOSPHATE 50 MG TABLET PO SCH ×2 (09:12→17:05)
[2020-01-16] MEDS: METFORMIN HCL 500 MG TABLET PO SCH ×2 (09:12→17:04)
[2020-01-16] MEDS: GABAPENTIN 300 MG CAPSULE PO SCH ×2 (09:12→22:23)
[2020-01-16] MEDS: INSULIN GLARGINE,HUM.REC.ANLOG 1,000 UNIT/10 ML VIAL SUBCUT SCH ×2 (09:13→22:27)
[2020-01-16] MEDS: AMLODIPINE BESYLATE 10 MG TABLET PO SCH (09:13)
[2020-01-16] MEDS: ZINC SULFATE 220 MG CAPSULE PO SCH (09:13)
[2020-01-16] MEDS: ASCORBIC ACID 500 MG TABLET PO SCH ×2 (09:13→17:05)
[2020-01-16] MEDS: REMDESIVIR (EUA) 100 MG in NORMAL SALINE 250 ML IV SCH (09:14)
--- NOTE | 2020-01-16 09:21 | PDOC PROGRESS REPORT ---
Subjective Progress Note for:: 01/16/20 Subjective:: Patient is currently doing fair To have episode of the patient was some confusion CT of the head was negative patient ABG with a pH with stable adjust oxygen's Still requiring 3 L oxygen's Patient denied any chest pain no short of breath And is more alert awake oriented today Reason For Visit: PNEUMONIA WITH HYPOXEMIA,DIABETES MELLITUS TYPE 2, Physical Exam Vital Signs: Temp Pulse Resp BP Pulse Ox 97.7 F 84 18 142/72 H 95 01/16/20 07:26 01/16/20 07:26 01/16/20 07:26 01/16/20 07:26 01/16/20 07:26 Intake & Output 01/15/20 01/16/20 01/17/20 06:59 06:59 06:59 Intake Total 550 670 Output Total 350 1250 Balance 200 -580 Weight 131.2 kg 131.6 kg General appearance: PRESENT: no acute distress, well-developed, well-nourished Head exam: PRESENT: atraumatic, normocephalic Eye exam: PRESENT: conjunctiva pink, EOMI, PERRLA. ABSENT: scleral icterus Ear exam: PRESENT: normal external ear exam Mouth exam: PRESENT: moist, tongue midline Neck exam: PRESENT: full ROM. ABSENT: carotid bruit, JVD, lymphadenopathy, thyromegaly Cardiovascular exam: PRESENT: RRR. ABSENT: diastolic murmur, rubs, systolic murmur Vascular exam: PRESENT: normal capillary refill GI/Abdominal exam: PRESENT: normal bowel sounds, soft. ABSENT: distended, guarding, mass, organolmegaly, rebound, tenderness Rectal exam: PRESENT: deferred Musculoskeletal exam: PRESENT: ambulatory Neurological exam: PRESENT: alert, awake, oriented to person, oriented to place, oriented to time, oriented to situation. ABSENT: motor sensory deficit Psychiatric exam: PRESENT: appropriate affect, normal mood. ABSENT: homicidal ideation, suicidal ideation Skin exam: PRESENT: dry, intact, warm. ABSENT: cyanosis, rash Results Laboratory Results: 01/16/20 03:44 01/16/20 03:44 01/15/20 01/15/20 01/16/20 15:32 16:45 03:20 WBC RBC Hgb Hct MCV MCH MCHC RDW Plt Count Seg Neutrophils % Carbonic Acid 1.47 H 1.09 HCO3/H2CO3 Ratio 21:1 24:1 ABG pH 7.43 7.49 H ABG pCO2 48.9 H 36.2 ABG pO2 23.5 L* 68.0 L ABG HCO3 32.0 H 27.2 H ABG O2 Saturation 42.5 L 95.0 ABG Base Excess 6.5 4.0 FiO2 ROOM AIR 2.5L Sodium Potassium Chloride Carbon Dioxide Anion Gap BUN Creatinine Est GFR ( Amer) Glucose Calcium Urine Color YELLOW Urine Appearance CLEAR Urine pH 6.0 Ur Specific [place] 1.019 Urine Protein NEGATIVE Urine Glucose (UA) 150 H Urine Ketones NEGATIVE Urine Blood NEGATIVE 01/16/20 01/16/20 03:44 03:44 WBC 11.4 H RBC 4.15 L Hgb 12.2 L Hct 36.8 L MCV 89 MCH 29.5 MCHC 33.2 RDW 14.2 H Plt Count 295 Seg Neutrophils % 81.9 H Carbonic Acid HCO3/H2CO3 Ratio ABG pH ABG pCO2 ABG pO2 ABG HCO3 ABG O2 Saturation ABG Base Excess FiO2 Sodium 137.7 Potassium 4.0 Chloride 101 Carbon Dioxide 26 Anion Gap 11 BUN 14 Creatinine 0.55 Est GFR ( Amer) > 60 Glucose 245 H Calcium 8.5 Urine Color Urine Appearance Urine pH Ur Specific [place] Urine Protein Urine Glucose (UA) Urine Ketones Urine Blood 01/10/20 19:10 Blood Blood Culture - Final NO GROWTH IN 5 DAYS 01/10/20 18:38 Blood Blood Culture - Final NO GROWTH IN 5 DAYS 01/10/20 01/10/20 18:10 18:10 Troponin I < 0.012 NT-Pro-B Natriuret Pep 367 H Impressions: Abdomen Ultrasound 01/10/20 19:09 IMPRESSION: Cholelithiasis. No sonographic evidence for cholecystitis. Fatty infiltrative change to the liver copyright 2011 [employer]- All Rights Reserved Chest/Abdomen CTA 01/10/20 19:10 IMPRESSION: No acute process in the abdomen or pelvis Cholelithiasis Patchy areas of infiltrate in the chest bilaterally. Findings are nonspecific and may BE infectious or inflammatory. Possibility of viral pneumonia is not excluded. Abdomen/Pelvis CT 01/10/20 19:11 IMPRESSION: No acute process in the abdomen or pelvis Cholelithiasis Patchy areas of infiltrate in the chest bilaterally. Findings are nonspecific and may BE infectious or inflammatory. Possibility of viral pneumonia is not excluded. Chest X-Ray 01/12/20 00:00 IMPRESSION: New patchy right basilar airspace disease suspicious for pneumonia. Head CT 01/15/20 00:00 IMPRESSION: 1. No acute intracranial findings. 2. Senescent changes with chronic microvascular ischemia. Assessment & Plan - Diagnosis (1) Hypoxia Is this a current diagnosis for this admission?: Yes (2) Pneumonia Qualifiers: Pneumonia type: due to unspecified organism Laterality: bilateral Lung location: unspecified part of lung Qualified Code(s): J18.9 - Pneumonia, unspecified organism Is this a current diagnosis for this admission?: Yes (3) Weakness Is this a current diagnosis for this admission?: Yes (4) Cerebrovascular disease Is this a current diagnosis for this admission?: Yes (5) Hypertension Qualifiers: Hypertension type: essential hypertension Qualified Code(s): I10 - Essential (primary) hypertension Is this a current diagnosis for this admission?: Yes (6) Prostate cancer Is this a current diagnosis for this admission?: Yes (7) COVID-19 Is this a current diagnosis for this admission?: Yes (8) Diabetes mellitus Qualifiers: Diabetes mellitus halfway insulin use: unspecified halfway insulin use status Diabetes mellitus complication status: without complication Is this a current diagnosis for this admission?: Yes - Time Time Spent with patient: 15-24 minutes Level of Care: IMCU Medications reviewed and adjusted accordingly: Yes Anticipated discharge: Home, Home with Homehealth Anticipated DC Timeframe: Other - Plan Summary Plan Summary: Continues the current medications continues the dexamethasone for 10 days continues the antiviral drugs once the azithromycin is done we will stop the azithromycin and put on the doxycycline twice a day continues to physical therapy discussed with the regarding the patient's current conditions
[2020-01-16] MEDS: CEFTRIAXONE 1 GM/D5W RTU 1 GM/50 ML RTUPB IV SCH (22:23)
[2020-01-16] MEDS: ATORVASTATIN CALCIUM 40 MG TABLET PO SCH (22:23)
[2020-01-16] MEDS: AZITHROMYCIN 500 MG in DEXTROSE 5%-WATER 250 ML IV SCH (22:28)
[2020-01-17] MEDS: PANTOPRAZOLE SODIUM 40 MG TABLET.DR PO SCH (06:11)
[2020-01-17 06:42] LABS: ANION GAP 9 (5-19); BLOOD UREA NITROGEN 12 mg/dL (7-20); CALCIUM 8.6 mg/dL (8.4-10.2); CARBON DIOXIDE 28 mmol/L (22-30); CHLORIDE 100 mmol/L (98-107); GLUCOSE 203 mg/dL (75-110); POTASSIUM 4.6 mmol/L (3.6-5.0)
[2020-01-17] MEDS: INSULIN LISPRO 100 UNIT/ML 3 ML VIAL SUBCUT SCH ×3 (08:23→17:08)
[2020-01-17] MEDS: AMLODIPINE BESYLATE 10 MG TABLET PO SCH (09:07)
[2020-01-17] MEDS: ASCORBIC ACID 500 MG TABLET PO SCH ×2 (09:07→17:09)
[2020-01-17] MEDS: SITAGLIPTIN PHOSPHATE 50 MG TABLET PO SCH ×2 (09:07→17:09)
[2020-01-17] MEDS: GABAPENTIN 300 MG CAPSULE PO SCH ×2 (09:07→23:29)
[2020-01-17] MEDS: ZINC SULFATE 220 MG CAPSULE PO SCH (09:07)
[2020-01-17] MEDS: DEXAMETHASONE SOD PHOSPHATE INJ 4 MG/1 ML VIAL IV SCH ×2 (09:07→23:30)
[2020-01-17] MEDS: LOSARTAN POTASSIUM 50 MG TABLET PO SCH ×2 (09:07→17:09)
[2020-01-17] MEDS: INSULIN GLARGINE,HUM.REC.ANLOG 1,000 UNIT/10 ML VIAL SUBCUT SCH (09:08)
[2020-01-17] MEDS: ENOXAPARIN SODIUM INJ 40 MG/0.4 ML DISP.SYRIN SUBCUT SCH (09:08)
[2020-01-17] MEDS: METFORMIN HCL 500 MG TABLET PO SCH ×2 (09:08→17:09)
--- NOTE | 2020-01-17 13:31 | PDOC PROGRESS REPORT ---
Subjective Progress Note for:: 01/17/20 Subjective:: Patient was seen by the bedside, he was upset because he has not had his breakfast, he said he is hungry and he wants out of here. I told the nurse about his concern, he was admitted for the management of COVID-19 positive test (U07.1, COVID-19) with Acute Pneumonia (J12.89, Other viral pneumonia) Reason For Visit: PNEUMONIA WITH HYPOXEMIA,DIABETES MELLITUS TYPE 2, Physical Exam Vital Signs: Temp Pulse Resp BP Pulse Ox 97.4 F 94 18 162/67 H 98 01/17/20 12:00 01/17/20 12:00 01/17/20 12:00 01/17/20 12:00 01/17/20 12:00 Intake & Output 01/16/20 01/17/20 01/18/20 06:59 06:59 06:59 Intake Total 670 910 Output Total 1250 1600 Balance -580 -690 Weight 131.6 kg 131 kg General appearance: PRESENT: no acute distress Eye exam: PRESENT: PERRLA Respiratory exam: PRESENT: clear to auscultation kristi Cardiovascular exam: PRESENT: +S1, +S2 GI/Abdominal exam: PRESENT: soft Neurological exam: PRESENT: alert Results Laboratory Results: 01/16/20 03:44 01/17/20 06:00 01/17/20 06:00 Sodium 136.5 L Potassium 4.6 Chloride 100 Carbon Dioxide 28 Anion Gap 9 BUN 12 Creatinine 0.53 Est GFR ( Amer) > 60 Glucose 203 H Calcium 8.6 01/10/20 01/10/20 18:10 18:10 Troponin I < 0.012 NT-Pro-B Natriuret Pep 367 H Impressions: Abdomen Ultrasound 01/10/20 19:09 IMPRESSION: Cholelithiasis. No sonographic evidence for cholecystitis. Fatty infiltrative change to the liver copyright 2011 [employer]- All Rights Reserved Chest/Abdomen CTA 01/10/20 19:10 IMPRESSION: No acute process in the abdomen or pelvis Cholelithiasis Patchy areas of infiltrate in the chest bilaterally. Findings are nonspecific and may BE infectious or inflammatory. Possibility of viral pneumonia is not excluded. Abdomen/Pelvis CT 01/10/20 19:11 IMPRESSION: No acute process in the abdomen or pelvis Cholelithiasis Patchy areas of infiltrate in the chest bilaterally. Findings are nonspecific and may BE infectious or inflammatory. Possibility of viral pneumonia is not excluded. Chest X-Ray 01/12/20 00:00 IMPRESSION: New patchy right basilar airspace disease suspicious for pneumonia. Head CT 01/15/20 00:00 IMPRESSION: 1. No acute intracranial findings. 2. Senescent changes with chronic microvascular ischemia. Assessment & Plan - Diagnosis (1) Acute hypoxemic respiratory failure Is this a current diagnosis for this admission?: Yes Plan: Continue supplemental oxygen via nasal cannula (2) Acute hypoxemic respiratory failure due to COVID-19 Is this a current diagnosis for this admission?: Yes Plan: Continue dexamethasone (3) Pneumonia, unspecified organism Is this a current diagnosis for this admission?: Yes Plan: Continue dexamethasone, antibacterial - Time Time Spent with patient: 25-34 minutes Level of Care: IMCU Anticipated discharge: Home Anticipated DC Timeframe: Other
[2020-01-17] MEDS: AZITHROMYCIN 500 MG in DEXTROSE 5%-WATER 250 ML IV SCH (22:55)
[2020-01-17] MEDS: ATORVASTATIN CALCIUM 40 MG TABLET PO SCH (23:29)
[2020-01-17] MEDS: CEFTRIAXONE 1 GM/D5W RTU 1 GM/50 ML RTUPB IV SCH (23:29)
[2020-01-18] MEDS: INSULIN LISPRO 100 UNIT/ML 3 ML VIAL SUBCUT SCH ×5 (00:11→22:28)
[2020-01-18] MEDS: INSULIN GLARGINE,HUM.REC.ANLOG 1,000 UNIT/10 ML VIAL SUBCUT SCH ×3 (00:12→22:29)
[2020-01-18 06:42] LABS: ANION GAP 7 (5-19); BLOOD UREA NITROGEN 10 mg/dL (7-20); CALCIUM 8.6 mg/dL (8.4-10.2); CARBON DIOXIDE 28 mmol/L (22-30); CHLORIDE 101 mmol/L (98-107); GLUCOSE 182 mg/dL (75-110); POTASSIUM 4.1 mmol/L (3.6-5.0)
[2020-01-18] MEDS: PANTOPRAZOLE SODIUM 40 MG TABLET.DR PO SCH (06:47)
[2020-01-18] MEDS: GABAPENTIN 300 MG CAPSULE PO SCH ×2 (09:14→21:25)
[2020-01-18] MEDS: AMLODIPINE BESYLATE 10 MG TABLET PO SCH (09:14)
[2020-01-18] MEDS: SITAGLIPTIN PHOSPHATE 50 MG TABLET PO SCH ×2 (09:14→17:13)
[2020-01-18] MEDS: ZINC SULFATE 220 MG CAPSULE PO SCH (09:14)
[2020-01-18] MEDS: ENOXAPARIN SODIUM INJ 40 MG/0.4 ML DISP.SYRIN SUBCUT SCH (09:15)
[2020-01-18] MEDS: ASCORBIC ACID 500 MG TABLET PO SCH ×2 (09:15→17:13)
[2020-01-18] MEDS: LOSARTAN POTASSIUM 50 MG TABLET PO SCH ×2 (09:15→17:14)
[2020-01-18] MEDS: DEXAMETHASONE SOD PHOSPHATE INJ 4 MG/1 ML VIAL IV SCH ×2 (09:15→21:26)
[2020-01-18] MEDS: METFORMIN HCL 500 MG TABLET PO SCH ×2 (09:15→17:13)
[2020-01-18 11:24] LABS: HEMATOCRIT 37.3 % (37.9-51.0); HEMOGLOBIN 12.2 g/dL (13.5-17.0); MEAN CORPUSCULAR HEMOGLOBIN 29.7 pg (27.0-33.4); MEAN CORPUSCULAR HGB CONC 32.8 g/dL (32.0-36.0); MEAN CORPUSCULAR VOLUME 91 fl (80-97); PLATELET COUNT 304 10^3/uL (150-450); RED BLOOD COUNT 4.12 10^6/uL (4.35-5.55); RED CELL DISTRIBUTION WIDTH 14.8 % (11.5-14.0)
[2020-01-18 11:54] LABS: ABSOLUTE LYMPHOCYTES# (MANUAL) 1.2 10^3/uL (0.5-4.7); ABSOLUTE MONOCYTES # (MANUAL) 0.3 10^3/uL (0.1-1.4); BASOPHILS % (MANUAL) 0 % (0-2); EOSINOPHILS % (MANUAL) 0 % (0-6); LYMPHOCYTES % (MANUAL) 8 % (13-45); MONOCYTES % (MANUAL) 2 % (3-13); SEGMENTED NEUTROPHILS % (MAN) 90 % (42-78); TOTAL CELLS COUNTED 100
[2020-01-18 11:55] LABS: ANISOCYTOSIS SLIGHT; BURR CELLS 1+
[2020-01-18 11:56] LABS: PLATELET COMMENT ADEQUATE; PLATELET GIANT PRESENT; PLATELET LARGE PRESENT
--- NOTE | 2020-01-18 13:51 | RADIOLOGY REPORT (SQ) ---
EXAM DESCRIPTION: CHEST SINGLE VIEW IMAGES COMPLETED DATE/TIME: 01/18/2020 1:36 pm REASON FOR STUDY: pneumonia COMPARISON: CT angio chest 01/10/2020 Chest films 12/25/2027, 01/12/2020 EXAM PARAMETERS: NUMBER OF VIEWS: One view. TECHNIQUE: Single frontal radiographic view of the chest acquired. RADIATION DOSE: NA LIMITATIONS: Obese patient, portable lordotic film FINDINGS: LUNGS AND PLEURA: Minimal bibasilar bandlike atelectasis. Patchy right upper lobe airspace disease near the minor fissure worrisome for early or developing pne umonia. No pleural effusion. No pneumothorax. MEDIASTINUM AND HILAR STRUCTURES: No masses. Contour normal. HEART AND VASCULAR STRUCTURES: No cardiomegaly BONES: No acute findings. HARDWARE: Loop recorder over the anterior left chest OTHER: No other significant finding. IMPRESSION: Early or developing right upper lobe infiltrate TECHNICAL DOCUMENTATION: JOB ID: [id number] 2010 [employer]- All Rights Reserved Reading location - IP/workstation name: [email or web address]
--- NOTE | 2020-01-18 14:50 | PDOC PROGRESS REPORT ---
Subjective Progress Note for:: 01/18/20 Subjective:: Patient seen by the bedside, chest x-ray done today demonstrated a developing right upper lobe infiltrate, There is also worsening leukocytosis, Patient presently on azithromycin, ceftriaxone, dexamethasone. Reason For Visit: PNEUMONIA WITH HYPOXEMIA,DIABETES MELLITUS TYPE 2, Physical Exam Vital Signs: Temp Pulse Resp BP Pulse Ox 98.0 F 87 19 146/78 H 91 L 01/18/20 11:26 01/18/20 11:26 01/18/20 11:26 01/18/20 11:26 01/18/20 11:26 Intake & Output 01/17/20 01/18/20 01/19/20 06:59 06:59 06:59 Intake Total 910 420 260 Output Total 1600 575 500 Balance -690 -155 -240 Weight 131 kg 131.4 kg General appearance: PRESENT: no acute distress Eye exam: PRESENT: PERRLA Respiratory exam: PRESENT: clear to auscultation kristi Cardiovascular exam: PRESENT: +S1, +S2 GI/Abdominal exam: PRESENT: soft Neurological exam: PRESENT: alert Results Laboratory Results: 01/18/20 05:32 01/18/20 05:32 01/18/20 01/18/20 05:32 05:32 WBC 15.0 H RBC 4.12 L Hgb 12.2 L Hct 37.3 L MCV 91 MCH 29.7 MCHC 32.8 RDW 14.8 H Plt Count 304 Seg Neutrophils % Not Reportable Sodium 136.2 L Potassium 4.1 Chloride 101 Carbon Dioxide 28 Anion Gap 7 BUN 10 Creatinine 0.47 L Est GFR ( Amer) > 60 Glucose 182 H Calcium 8.6 01/10/20 01/10/20 18:10 18:10 Troponin I < 0.012 NT-Pro-B Natriuret Pep 367 H Impressions: Abdomen Ultrasound 01/10/20 19:09 IMPRESSION: Cholelithiasis. No sonographic evidence for cholecystitis. Fatty infiltrative change to the liver copyright 2011 [employer]- All Rights Reserved Chest/Abdomen CTA 01/10/20 19:10 IMPRESSION: No acute process in the abdomen or pelvis Cholelithiasis Patchy areas of infiltrate in the chest bilaterally. Findings are nonspecific and may BE infectious or inflammatory. Possibility of viral pneumonia is not excluded. Abdomen/Pelvis CT 01/10/20 19:11 IMPRESSION: No acute process in the abdomen or pelvis Cholelithiasis Patchy areas of infiltrate in the chest bilaterally. Findings are nonspecific and may BE infectious or inflammatory. Possibility of viral pneumonia is not excluded. Head CT 01/15/20 00:00 IMPRESSION: 1. No acute intracranial findings. 2. Senescent changes with chronic microvascular ischemia. Chest X-Ray 01/18/20 00:00 IMPRESSION: Early or developing right upper lobe infiltrate Assessment & Plan - Diagnosis (1) Acute hypoxemic respiratory failure Is this a current diagnosis for this admission?: Yes (2) Acute hypoxemic respiratory failure due to COVID-19 Is this a current diagnosis for this admission?: Yes (3) Pneumonia, unspecified organism Is this a current diagnosis for this admission?: Yes Plan: There is worsening leukocytosis despite ceftriaxone, azithromycin, dexamethasone the chest x-ray that was done also suggest a new developing infiltrate in the right upper lobe, I will request CT chest with contrast to further define what this lesion is, The blood culture so far no growth, no organism isolated, treatment is essentially empiric for this patient, he has SARS-CoV-2 infection, Change antibiotic, stop azithromycin, stop ceftriaxone, start imipenem and Zyvox - Time Time Spent with patient: 35 or more minutes Level of Care: IMCU Medications reviewed and adjusted accordingly: Yes Anticipated discharge: Home Anticipated DC Timeframe: within 72 hours
[2020-01-18] MEDS: IMIPENEM/CILASTATIN SODIUM 500 MG in NORMAL SALINE 100 ML IV SCH (17:14)
[2020-01-18] MEDS ORDERED: DIPHENHYDRAMINE HCL 50 MG/ML VIAL ONE (19:51)
[2020-01-18] MEDS ORDERED: FAMOTIDINE INJ/PF 20 MG/2 ML SDV IV ONE ×2 (19:52→20:00)
[2020-01-18] MEDS ORDERED: DIPHENHYDRAMINE HCL 50 MG/ML VIAL IV ONE (20:00)
--- NOTE | 2020-01-18 21:05 | RADIOLOGY REPORT (SQ) ---
EXAM DESCRIPTION: [facility]: CT CHEST WITH IV CONTRAST CLINICAL HISTORY: 64 years Male; Worsening leukocytosis, worsening chest x-ray TECHNIQUE: CT of the chest using intravenous contrast. All CT scans at this facility use dose modulation, iterative reconstruction, and/or weight based dosing when appropriate to reduce radiation dose to as low as reasonably achievable. COMPARISON: CT 01/10/2020 FINDINGS: Chest: Lungs: There are persistent scattered peripheral densities in both lungs, although overall aeration of lungs has improved. Subsegmental atelectasis in the posterior right lower lobe and anterior left lower lobe is slightly worse. No pleural effusion or pneumothorax. Mediastinum: Mediastinum is unchanged. Coronary artery calcifications are again noted. No pericardial effusion. Bones:No acute bone findings. Gallstones are again noted. IMPRESSION: 1. Previous upper lobe infiltrates have improved, although there are increasing infiltrates in the anterior left lower lobe and the posterior right lower lobe since 01/10/2020.
[2020-01-18] MEDS: LINEZOLID 600 MG/300 ML RTUPB IV SCH (21:25)
[2020-01-18] MEDS: ATORVASTATIN CALCIUM 40 MG TABLET PO SCH (21:26)
[2020-01-19] MEDS: IMIPENEM/CILASTATIN SODIUM 500 MG in NORMAL SALINE 100 ML IV SCH ×4 (01:11→17:04)
[2020-01-19] MEDS: PANTOPRAZOLE SODIUM 40 MG TABLET.DR PO SCH (06:01)
[2020-01-19] MEDS: LINEZOLID 600 MG/300 ML RTUPB IV SCH ×2 (08:25→21:57)
[2020-01-19] MEDS: INSULIN LISPRO 100 UNIT/ML 3 ML VIAL SUBCUT SCH ×4 (08:25→21:59)
[2020-01-19] MEDS: DEXAMETHASONE SOD PHOSPHATE INJ 4 MG/1 ML VIAL IV SCH ×2 (09:18→21:56)
[2020-01-19] MEDS: ENOXAPARIN SODIUM INJ 40 MG/0.4 ML DISP.SYRIN SUBCUT SCH (09:18)
[2020-01-19] MEDS: ZINC SULFATE 220 MG CAPSULE PO SCH (09:18)
[2020-01-19] MEDS: GABAPENTIN 300 MG CAPSULE PO SCH ×2 (09:19→21:55)
[2020-01-19] MEDS: AMLODIPINE BESYLATE 10 MG TABLET PO SCH (09:19)
[2020-01-19] MEDS: INSULIN GLARGINE,HUM.REC.ANLOG 1,000 UNIT/10 ML VIAL SUBCUT SCH ×2 (09:19→21:57)
[2020-01-19] MEDS: ASCORBIC ACID 500 MG TABLET PO SCH ×2 (09:19→17:03)
[2020-01-19] MEDS: SITAGLIPTIN PHOSPHATE 50 MG TABLET PO SCH ×2 (09:21→17:04)
[2020-01-19] MEDS: METFORMIN HCL 500 MG TABLET PO SCH ×2 (09:21→17:04)
[2020-01-19] MEDS: LOSARTAN POTASSIUM 50 MG TABLET PO SCH ×2 (09:21→17:03)
--- NOTE | 2020-01-19 10:32 | PDOC PROGRESS REPORT ---
Subjective Progress Note for:: 01/19/20 Subjective:: Patient is currently doing fair There is no need of oxygen We can patient have a CT of the chest done with so some new area of pneumonia and also elevated white count when we can start on broad-spectrum IV antibiotic Patient's denied any chest pain no short of breath Reason For Visit: PNEUMONIA WITH HYPOXEMIA,DIABETES MELLITUS TYPE 2, Physical Exam Vital Signs: Temp Pulse Resp BP Pulse Ox 98.0 F 88 18 147/88 H 94 01/19/20 08:14 01/19/20 08:14 01/19/20 08:14 01/19/20 08:14 01/19/20 08:14 Intake & Output 01/18/20 01/19/20 01/20/20 06:59 06:59 06:59 Intake Total 420 1080 Output Total 575 1375 Balance -155 -295 Weight 131.4 kg 130.8 kg General appearance: PRESENT: no acute distress, well-developed, well-nourished Head exam: PRESENT: atraumatic, normocephalic Eye exam: PRESENT: conjunctiva pink, EOMI, PERRLA. ABSENT: scleral icterus Ear exam: PRESENT: normal external ear exam Mouth exam: PRESENT: moist, tongue midline Neck exam: PRESENT: full ROM. ABSENT: carotid bruit, JVD, lymphadenopathy, thyromegaly Respiratory exam: PRESENT: clear to auscultation kristi Cardiovascular exam: PRESENT: RRR. ABSENT: diastolic murmur, rubs, systolic murmur Vascular exam: PRESENT: normal capillary refill GI/Abdominal exam: PRESENT: normal bowel sounds, soft. ABSENT: distended, g uarding, mass, organolmegaly, rebound, tenderness Rectal exam: PRESENT: deferred Neurological exam: PRESENT: alert, awake, oriented to person, oriented to place, oriented to time, oriented to situation. ABSENT: motor sensory deficit Psychiatric exam: PRESENT: appropriate affect, normal mood. ABSENT: homicidal ideation, suicidal ideation Skin exam: PRESENT: dry, intact, warm. ABSENT: cyanosis, rash Results Laboratory Results: 01/18/20 05:32 01/18/20 05:32 01/18/20 05:32 WBC 15.0 H RBC 4.12 L Hgb 12.2 L Hct 37.3 L MCV 91 MCH 29.7 MCHC 32.8 RDW 14.8 H Plt Count 304 Seg Neutrophils % Not Reportable 01/10/20 01/10/20 18:10 18:10 Troponin I < 0.012 NT-Pro-B Natriuret Pep 367 H Impressions: Abdomen Ultrasound 01/10/20 19:09 IMPRESSION: Cholelithiasis. No sonographic evidence for cholecystitis. Fatty infiltrative change to the liver copyright 2010 [employer]- All Rights Reserved Chest/Abdomen CTA 01/10/20 19:10 IMPRESSION: No acute process in the abdomen or pelvis Cholelithiasis Patchy areas of infiltrate in the chest bilaterally. Findings are nonspecific and may BE infectious or inflammatory. Possibility of viral pneumonia is not excluded. Abdomen/Pelvis CT 01/10/20 19:11 IMPRESSION: No acute process in the abdomen or pelvis Cholelithiasis Patchy areas of infiltrate in the chest bilaterally. Findings are nonspecific and may BE infectious or inflammatory. Possibility of viral pneumonia is not excluded. Head CT 01/15/20 00:00 IMPRESSION: 1. No acute intracranial findings. 2. Senescent changes with chronic microvascular ischemia. Chest CT 01/18/20 00:00 IMPRESSION: 1. Previous upper lobe infiltrates have improved, although there are increasing infiltrates in the anterior left lower lobe and the posterior right lower lobe since 01/10/2020. Chest X-Ray 01/18/20 00:00 IMPRESSION: Early or developing right upper lobe infiltrate Assessment & Plan - Diagnosis (1) Hypoxia Is this a current diagnosis for this admission?: Yes (2) Pneumonia Qualifiers: Pneumonia type: due to unspecified organism Laterality: bilateral Lung location: unspecified part of lung Qualified Code(s): J18.9 - Pneumonia, unspecified organism Is this a current diagnosis for this admission?: Yes (3) Weakness Is this a current diagnosis for this admission?: Yes (4) Cerebrovascular disease Is this a current diagnosis for this admission?: Yes (5) Hypertension Qualifiers: Hypertension type: essential hypertension Qualified Code(s): I10 - Essential (primary) hypertension Is this a current diagnosis for this admission?: Yes (6) Prostate cancer Is this a current diagnosis for this admission?: Yes (7) COVID-19 Is this a current diagnosis for this admission?: Yes (8) Diabetes mellitus Qualifiers: Diabetes mellitus terminal make up operator insulin use: unspecified terminal make up operator insulin use status Diabetes mellitus complication status: without complication Is this a current diagnosis for this admission?: Yes - Time Time Spent with patient: 15-24 minutes Level of Care: IMCU Medications reviewed and adjusted accordingly: Yes Anticipated discharge: Home Anticipated DC Timeframe: Other - Plan Summary Plan Summary: Continues to current medications Discussed with the patient's to ambulatory and sit in the chair deep breathing exercises
[2020-01-19] MEDS: ATORVASTATIN CALCIUM 40 MG TABLET PO SCH (21:55)
[2020-01-20] MEDS: IMIPENEM/CILASTATIN SODIUM 500 MG in NORMAL SALINE 100 ML IV SCH ×5 (00:06→23:39)
[2020-01-20] MEDS: PANTOPRAZOLE SODIUM 40 MG TABLET.DR PO SCH (05:20)
[2020-01-20 05:23] LABS: HEMATOCRIT 37.2 % (37.9-51.0); HEMOGLOBIN 12.3 g/dL (13.5-17.0); MEAN CORPUSCULAR HEMOGLOBIN 29.5 pg (27.0-33.4); MEAN CORPUSCULAR VOLUME 89 fl (80-97); PLATELET COUNT 298 10^3/uL (150-450); RED BLOOD COUNT 4.16 10^6/uL (4.35-5.55); WHITE BLOOD COUNT 17.6 10^3/uL (4.0-10.5)
[2020-01-20 05:35] LABS: ANION GAP 12 (5-19); BLOOD UREA NITROGEN 16 mg/dL (7-20); CALCIUM 8.9 mg/dL (8.4-10.2); CARBON DIOXIDE 25 mmol/L (22-30); CHLORIDE 101 mmol/L (98-107); GLUCOSE 271 mg/dL (75-110); POTASSIUM 4.3 mmol/L (3.6-5.0)
[2020-01-20 05:49] LABS: ABSOLUTE LYMPHOCYTES# (MANUAL) 1.4 10^3/uL (0.5-4.7); ABSOLUTE MONOCYTES # (MANUAL) 0.5 10^3/uL (0.1-1.4); BASOPHILS % (MANUAL) 1 % (0-2); EOSINOPHILS % (MANUAL) 0 % (0-6); LYMPHOCYTES % (MANUAL) 8 % (13-45); MONOCYTES % (MANUAL) 3 % (3-13); SEGMENTED NEUTROPHILS % (MAN) 88 % (42-78); TOTAL CELLS COUNTED 100
[2020-01-20 05:50] LABS: ANISOCYTOSIS 1+; BURR CELLS 1+; OVALOCYTES SLIGHT; PLATELET COMMENT ADEQUATE; POIKILOCYTOSIS 1+; TEAR DROP CELLS 1+; TOXIC GRANULATION 1+
[2020-01-20] MEDS: INSULIN GLARGINE,HUM.REC.ANLOG 1,000 UNIT/10 ML VIAL SUBCUT SCH ×2 (09:38→21:38)
[2020-01-20] MEDS: LINEZOLID 600 MG/300 ML RTUPB IV SCH ×2 (09:38→20:38)
[2020-01-20] MEDS: INSULIN LISPRO 100 UNIT/ML 3 ML VIAL SUBCUT SCH ×4 (09:39→21:37)
[2020-01-20] MEDS: SITAGLIPTIN PHOSPHATE 50 MG TABLET PO SCH ×2 (09:39→17:29)
[2020-01-20] MEDS: ASCORBIC ACID 500 MG TABLET PO SCH ×2 (09:39→17:29)
[2020-01-20] MEDS: ZINC SULFATE 220 MG CAPSULE PO SCH (09:40)
[2020-01-20] MEDS: GABAPENTIN 300 MG CAPSULE PO SCH ×2 (09:40→21:38)
[2020-01-20] MEDS: METFORMIN HCL 500 MG TABLET PO SCH ×2 (09:40→17:28)
[2020-01-20] MEDS: ENOXAPARIN SODIUM INJ 40 MG/0.4 ML DISP.SYRIN SUBCUT SCH (09:41)
[2020-01-20] MEDS: LOSARTAN POTASSIUM 50 MG TABLET PO SCH ×2 (09:41→17:28)
[2020-01-20] MEDS: AMLODIPINE BESYLATE 10 MG TABLET PO SCH (09:41)
[2020-01-20] MEDS: DEXAMETHASONE SOD PHOSPHATE INJ 4 MG/1 ML VIAL IV SCH ×2 (09:41→21:37)
--- NOTE | 2020-01-20 13:09 | PDOC PROGRESS REPORT ---
Subjective Progress Note for:: 01/20/20 Subjective:: Patient is feeling much better Patients does not have a no fever no chills No chest pain no short of breath Patients does not require any oxygen White count is still elevated No diarrhea Reason For Visit: PNEUMONIA WITH HYPOXEMIA,DIABETES MELLITUS TYPE 2, Physical Exam Vital Signs: Temp Pulse Resp BP Pulse Ox 98.2 F 81 19 149/74 H 96 01/20/20 07:31 01/20/20 07:18 01/20/20 07:18 01/20/20 07:18 01/20/20 07:18 Intake & Output 01/19/20 01/20/20 01/21/20 06:59 06:59 06:59 Intake Total 1080 2782 Output Total 1375 725 Balance -295 7 Weight 130.8 kg 132.7 kg General appearance: PRESENT: no acute distress, well-developed, well-nourished Head exam: PRESENT: atraumatic, normocephalic Eye exam: PRESENT: conjunctiva pink, EOMI, PERRLA. ABSENT: scleral icterus Ear exam: PRESENT: normal external ear exam Mouth exam: PRESENT: moist, tongue midline Neck exam: PRESENT: full ROM. ABSENT: carotid bruit, JVD, lymphadenopathy, thyromegaly Respiratory exam: PRESENT: clear to auscultation kristi Cardiovascular exam: PRESENT: RRR. ABSENT: diastolic murmur, rubs, systolic murmur Vascular exam: PRESENT: normal capillary refill GI/Abdominal exam: PRESENT: normal bowel sounds, soft. ABSENT: distended, guarding, mass, organolmegaly, rebound, tenderness Rectal exam: PRESENT: deferred Musculoskeletal exam: PRESENT: ambulatory Neurological exam: PRESENT: alert, awake, oriented to person, oriented to place, oriented to time, oriented to situation. ABSENT: motor sensory deficit Psychiatric exam: PRESENT: appropriate affect, normal mood. ABSENT: homicidal ideation, suicidal ideation Skin exam: PRESENT: dry, intact, warm. ABSENT: cyanosis, rash Results Laboratory Results: 01/20/20 04:12 01/20/20 04:12 01/20/20 01/20/20 04:12 04:12 WBC 17.6 H RBC 4.16 L Hgb 12.3 L Hct 37.2 L MCV 89 MCH 29.5 MCHC 33.0 RDW 15.0 H Plt Count 298 Seg Neutrophils % Not Reportable Sodium 138.0 Potassium 4.3 Chloride 101 Carbon Dioxide 25 Anion Gap 12 BUN 16 Creatinine 0.75 Est GFR ( Amer) > 60 Glucose 271 H Calcium 8.9 01/10/20 01/10/20 18:10 18:10 Troponin I < 0.012 NT-Pro-B Natriuret Pep 367 H Impressions: Abdomen Ultrasound 01/10/20 19:09 IMPRESSION: Cholelithiasis. No sonographic evidence for cholecystitis. Fatty infiltrative change to the liver copyright 2011 [employer]- All Rights Reserved Chest/Abdomen CTA 01/10/20 19:10 IMPRESSION: No acute process in the abdomen or pelvis Cholelithiasis Patchy areas of infiltrate in the chest bilaterally. Findings are nonspecific and may BE infectious or inflammatory. Possibility of viral pneumonia is not excluded. Abdomen/Pelvis CT 01/10/20 19:11 IMPRESSION: No acute process in the abdomen or pelvis Cholelithiasis Patchy areas of infiltrate in the chest bilaterally. Findings are nonspecific and may BE infectious or inflammatory. Possibility of viral pneumonia is not excluded. Head CT 01/15/20 00:00 IMPRESSION: 1. No acute intracranial findings. 2. Senescent changes with chronic microvascular ischemia. Chest CT 01/18/20 00:00 IMPRESSION: 1. Previous upper lobe infiltrates have improved, although there are increasing infiltrates in the anterior left lower lobe and the posterior right lower lobe since 01/10/2020. Chest X-Ray 01/18/20 00:00 IMPRESSION: Early or developing right upper lobe infiltrate Assessment & Plan - Diagnosis (1) Hypoxia Is this a current diagnosis for this admission?: Yes (2) Pneumonia Qualifiers: Pneumonia type: due to unspecified organism Laterality: bilateral Lung location: unspecified part of lung Qualified Code(s): J18.9 - Pneumonia, unspecified organism Is this a current diagnosis for this admission?: Yes (3) Weakness Is this a current diagnosis for this admission?: Yes (4) Cerebrovascular disease Is this a current diagnosis for this admission?: Yes (5) Hypertension Qualifiers: Hypertension type: essential hypertension Qualified Code(s): I10 - Essential (primary) hypertension Is this a current diagnosis for this admission?: Yes (6) Prostate cancer Is this a current diagnosis for this admission?: Yes (7) COVID-19 Is this a current diagnosis for this admission?: Yes (8) Diabetes mellitus Qualifiers: Diabetes mellitus longterm insulin use: unspecified longterm insulin use status Diabetes mellitus complication status: without complication Is this a current diagnosis for this admission?: Yes - Time Time Spent with patient: 15-24 minutes Level of Care: IMCU Medications reviewed and adjusted accordingly: Yes Anticipated discharge: Home Anticipated DC Timeframe: Other - Plan Summary Plan Summary: Clinically patient is much improving Patient's white count is still elevated We will check stool for the C. difficile Consider to put the doxycycline if the patient is remained afebrile DC the IV antibiotic
[2020-01-20] MEDS: ATORVASTATIN CALCIUM 40 MG TABLET PO SCH (21:38)
[2020-01-21 05:07] LABS: ABSOLUTE BASOPHILS # (AUTO) 0.1 10^3/uL (0.0-0.2); ABSOLUTE EOSINOPHILS # (AUTO) 0.1 10^3/uL (0.0-0.6); ABSOLUTE LYMPHOCYTES (AUTO) 1.3 10^3/uL (0.5-4.7); ABSOLUTE NEUT (AUTO) 15.6 10^3/uL (1.7-8.2); BASOPHILS % (AUTO) 0.5 % (0-2); EOSINOPHILS % (AUTO) 0.4 % (0-6); HEMATOCRIT 37.9 % (37.9-51.0); HEMOGLOBIN 12.6 g/dL (13.5-17.0); LYMPHOCYTES % (AUTO) 7.4 % (13-45); MEAN CORPUSCULAR HEMOGLOBIN 29.8 pg (27.0-33.4); MEAN CORPUSCULAR HGB CONC 33.2 g/dL (32.0-36.0); MEAN CORPUSCULAR VOLUME 90 fl (80-97); MONOCYTES % (AUTO) 5.6 % (3-13); PLATELET COUNT 297 10^3/uL (150-450); RED BLOOD COUNT 4.23 10^6/uL (4.35-5.55); RED CELL DISTRIBUTION WIDTH 14.9 % (11.5-14.0); SEGMENTED NEUTROPHILS % (AUTO) 86.1 % (42-78); TOTAL CELLS COUNTED % (AUTO) 100 %; WHITE BLOOD COUNT 18.1 10^3/uL (4.0-10.5)
[2020-01-21] MEDS: PANTOPRAZOLE SODIUM 40 MG TABLET.DR PO SCH (05:18)
[2020-01-21 05:23] LABS: ANION GAP 13 (5-19); BLOOD UREA NITROGEN 12 mg/dL (7-20); CALCIUM 9.4 mg/dL (8.4-10.2); CARBON DIOXIDE 24 mmol/L (22-30); CHLORIDE 100 mmol/L (98-107); GLUCOSE 262 mg/dL (75-110); POTASSIUM 4.3 mmol/L (3.6-5.0)
[2020-01-21] MEDS: IMIPENEM/CILASTATIN SODIUM 500 MG in NORMAL SALINE 100 ML IV SCH (05:24)
[2020-01-21] MEDS: INSULIN LISPRO 100 UNIT/ML 3 ML VIAL SUBCUT SCH ×4 (09:36→21:52)
[2020-01-21] MEDS: INSULIN GLARGINE,HUM.REC.ANLOG 1,000 UNIT/10 ML VIAL SUBCUT SCH ×2 (09:37→21:48)
[2020-01-21] MEDS: ASCORBIC ACID 500 MG TABLET PO SCH ×2 (09:38→17:16)
[2020-01-21] MEDS: SITAGLIPTIN PHOSPHATE 50 MG TABLET PO SCH ×2 (09:39→17:16)
[2020-01-21] MEDS: DOXYCYCLINE HYCLATE 100 MG TABLET PO SCH ×2 (09:39→21:48)
[2020-01-21] MEDS: METFORMIN HCL 500 MG TABLET PO SCH ×2 (09:42→17:16)
[2020-01-21] MEDS: AMLODIPINE BESYLATE 10 MG TABLET PO SCH (09:42)
[2020-01-21] MEDS: GABAPENTIN 300 MG CAPSULE PO SCH ×2 (09:42→21:48)
[2020-01-21] MEDS: LOSARTAN POTASSIUM 50 MG TABLET PO SCH ×2 (09:43→17:16)
[2020-01-21] MEDS: ENOXAPARIN SODIUM INJ 40 MG/0.4 ML DISP.SYRIN SUBCUT SCH (09:43)
[2020-01-21] MEDS: ZINC SULFATE 220 MG CAPSULE PO SCH (09:43)
--- NOTE | 2020-01-21 09:58 | RADIOLOGY REPORT (SQ) ---
EXAM DESCRIPTION: CHEST SINGLE VIEW IMAGES COMPLETED DATE/TIME: 01/21/2020 9:33 am REASON FOR STUDY: pnemonia COMPARISON: AP view of the chest from 01/18/[address] of the chest from 01/18/2020. EXAM PARAMETERS: NUMBER OF VIEWS: One view. TECHNIQUE: An AP view of the chest was obtained. RADIATION DOSE: NA LIMITATIONS: None. FINDINGS: LUNGS AND PLEURA: The peripheral opacities described on the correlative CT from 01/18/2020 are inconspicuous on the radiograph. There is no sizable pleural effusion or pneumothorax. MEDIASTINUM AND HILAR STRUCTURES: Stable mediastinal and hilar contours. HEART AND VASCULAR STRUCTURES: Stable enlarged cardiac silhouette. BONES: No acute findings. HARDWARE: Implantable loop recorder. OTHER: No other finding. IMPRESSION: The peripheral opacities described on the correlative CT from 01/18/2020 are inconspicuou s on a radiograph. TECHNICAL DOCUMENTATION: JOB ID: [id number] 2010 [employer]- All Rights Reserved Reading location - IP/workstation name: [email or web address]
[2020-01-21] MEDS ORDERED: DEXAMETHASONE SOD PHOSPHATE INJ 4 MG/1 ML VIAL IV SCH (10:00)
--- NOTE | 2020-01-21 13:39 | PDOC PROGRESS REPORT ---
Subjective Progress Note for:: 01/21/20 Subjective:: Patient is currently doing well No chest pain no short of breath No fever no chills White count is still elevated Clinically patient is not sign of any infection Still have a COVID pneumonia Reason For Visit: PNEUMONIA WITH HYPOXEMIA,DIABETES MELLITUS TYPE 2, Physical Exam Vital Signs: Temp Pulse Resp BP Pulse Ox 98.2 F 87 18 151/85 H 97 01/21/20 08:29 01/21/20 08:29 01/21/20 03:01 01/21/20 08:29 01/21/20 08:29 Intake & Output 01/20/20 01/21/20 01/22/20 06:59 06:59 06:59 Intake Total 2782 1882 Output Total 725 1625 Balance 2057 257 Weight 132.7 kg 132.8 kg General appearance: PRESENT: no acute distress, well-developed, well-nourished Head exam: PRESENT: atraumatic, normocephalic Eye exam: PRESENT: conjunctiva pink, EOMI, PERRLA. ABSENT: scleral icterus Ear exam: PRESENT: normal external ear exam Mouth exam: PRESENT: moist, tongue midline Neck exam: PRESENT: full ROM. ABSENT: carotid bruit, JVD, lymphadenopathy, thyromegaly Respiratory exam: PRESENT: clear to auscultation kristi Cardiovascular exam: PRESENT: RRR. ABSENT: diastolic murmur, rubs, systolic murmur Pulses: PRESENT: normal dorsalis pedis pul, +2 pedal pulses bilateral Vascular exam: PRESENT: normal capillary refill GI/Abdominal exam: PRESENT: normal bowel sounds, soft. ABSENT: distended, guarding, mass, organolmegaly, rebound, tenderness Rectal exam: PRESENT: deferred Musculoskeletal exam: PRESENT: ambulatory Neurological exam: PRESENT: alert, awake, oriented to person, oriented to place, oriented to time, oriented to situation, CN II-XII grossly intact. ABSENT: motor sensory deficit Psychiatric exam: PRESENT: appropriate affect, normal mood. ABSENT: homicidal ideation, suicidal ideation Skin exam: PRESENT: dry, intact, warm. ABSENT: cyanosis, rash Results Laboratory Results: 01/21/20 03:55 01/21/20 03:55 01/21/20 01/21/20 03:55 03:55 WBC 18.1 H RBC 4.23 L Hgb 12.6 L Hct 37.9 MCV 90 MCH 29.8 MCHC 33.2 RDW 14.9 H Plt Count 297 Seg Neutrophils % 86.1 H Sodium 137.2 Potassium 4.3 Chloride 100 Carbon Dioxide 24 Anion Gap 13 BUN 12 Creatinine 0.53 Est GFR ( Amer) > 60 Glucose 262 H Calcium 9.4 01/10/20 01/10/20 18:10 18:10 Troponin I < 0.012 NT-Pro-B Natriuret Pep 367 H Impressions: Abdomen Ultrasound 01/10/20 19:09 IMPRESSION: Cholelithiasis. No sonographic evidence for cholecystitis. Fatty infiltrative change to the liver copyright 2010 [email or web address]- All Rights Reserved Chest/Abdomen CTA 01/10/20 19:10 IMPRESSION: No acute process in the abdomen or pelvis Cholelithiasis Patchy areas of infiltrate in the chest bilaterally. Findings are nonspecific and may BE infectious or inflammatory. Possibility of viral pneumonia is not excluded. Abdomen/Pelvis CT 01/10/20 19:11 IMPRESSION: No acute process in the abdomen or pelvis Cholelithiasis Patchy areas of infiltrate in the chest bilaterally. Findings are nonspecific and may BE infectious or inflammatory. Possibility of viral pneumonia is not excluded. Head CT 01/15/20 00:00 IMPRESSION: 1. No acute intracranial findings. 2. Senescent changes with chronic microvascular ischemia. Chest CT 01/18/20 00:00 IMPRESSION: 1. Previous upper lobe infiltrates have improved, although there are increasing infiltrates in the anterior left lower lobe and the posterior right lower lobe since 01/10/2020. Chest X-Ray 01/21/20 00:00 IMPRESSION: The peripheral opacities described on the correlative CT from 01/18/2020 are inconspicuous on a radiograph. Assessment & Plan - Diagnosis (1) Hypoxia Is this a current diagnosis for this admission?: Yes (2) Pneumonia Qualifiers: Pneumonia type: due to unspecified organism Laterality: bilateral Lung location: unspecified part of lung Qualified Code(s): J18.9 - Pneumonia, unspecified organism Is this a current diagnosis for this admission?: Yes (3) Weakness Is this a current diagnosis for this admission?: Yes (4) Cerebrovascular disease Is this a current diagnosis for this admission?: Yes (5) Hypertension Qualifiers: Hypertension type: essential hypertension Qualified Code(s): I10 - Essential (primary) hypertension Is this a current diagnosis for this admission?: Yes (6) Prostate cancer Is this a current diagnosis for this admission?: Yes (7) COVID-19 Is this a current diagnosis for this admission?: Yes (8) Diabetes mellitus Qualifiers: Diabetes mellitus penitentiary insulin use: unspecified penitentiary insulin use status Diabetes mellitus complication status: without complication Is this a current diagnosis for this admission?: Yes - Time Time Spent with patient: 15-24 minutes Level of Care: IMCU Medications reviewed and adjusted accordingly: Yes Anticipated discharge: Home with Homehealth Anticipated DC Timeframe: Other - Plan Summary Plan Summary: We will discontinues the IV antibiotic try to put the doxycycline p.o. repeat the CBC in the morning Patient is really wants to go home but will see how the patient is doing with the p.o. antibiotic and will stop the dexamethasone while patient is finished almost 10-day course
[2020-01-21] MEDS: ATORVASTATIN CALCIUM 40 MG TABLET PO SCH (21:48)
[2020-01-22 05:03] LABS: MEAN CORPUSCULAR HEMOGLOBIN 29.8 pg (27.0-33.4); MEAN CORPUSCULAR HGB CONC 33.3 g/dL (32.0-36.0); MEAN CORPUSCULAR VOLUME 89 fl (80-97); PLATELET COUNT 294 10^3/uL (150-450); RED BLOOD COUNT 4.36 10^6/uL (4.35-5.55); RED CELL DISTRIBUTION WIDTH 15.4 % (11.5-14.0); WHITE BLOOD COUNT 16.1 10^3/uL (4.0-10.5)
[2020-01-22 05:17] LABS: ANION GAP 10 (5-19); BLOOD UREA NITROGEN 12 mg/dL (7-20); CALCIUM 8.8 mg/dL (8.4-10.2); CARBON DIOXIDE 28 mmol/L (22-30); CHLORIDE 102 mmol/L (98-107); GLUCOSE 88 mg/dL (75-110); POTASSIUM 3.8 mmol/L (3.6-5.0)
[2020-01-22 05:48] LABS: ABSOLUTE LYMPHOCYTES# (MANUAL) 3.2 10^3/uL (0.5-4.7); ABSOLUTE MONOCYTES # (MANUAL) 0.2 10^3/uL (0.1-1.4); BAND NEUTROPHILS % (MANUAL) 1 % (3-5); BASOPHILS % (MANUAL) 0 % (0-2); EOSINOPHILS % (MANUAL) 1 % (0-6); LYMPHOCYTES % (MANUAL) 18 % (13-45); MONOCYTES % (MANUAL) 1 % (3-13); SEGMENTED NEUTROPHILS % (MAN) 77 % (42-78); TOTAL CELLS COUNTED 100
[2020-01-22 05:49] LABS: TOXIC VACUOLATION PRESENT
[2020-01-22 05:50] LABS: ANISOCYTOSIS SLIGHT; OVALOCYTES SLIGHT; PLATELET COMMENT ADEQUATE
[2020-01-22] MEDS: PANTOPRAZOLE SODIUM 40 MG TABLET.DR PO SCH (06:05)
--- NOTE | 2020-01-22 08:27 | PDOC PROGRESS REPORT ---
Subjective Progress Note for:: 01/22/20 Subjective:: Patient is currently doing well Patient's denied any chest pain no short of breath White count is also improving No fever no chills Reason For Visit: PNEUMONIA WITH HYPOXEMIA,DIABETES MELLITUS TYPE 2, Physical Exam Vital Signs: Temp Pulse Resp BP Pulse Ox 98.2 F 88 14 104/67 92 01/22/20 07:35 01/22/20 07:00 01/22/20 03:38 01/22/20 03:38 01/22/20 03:38 Intake & Output 01/21/20 01/22/20 01/23/20 06:59 06:59 06:59 Intake Total 1882 972 Output Total 1625 2150 Balance 257 -1178 Weight 132.8 kg 130.8 kg General appearance: PRESENT: no acute distress, well-developed, well-nourished Head exam: PRESENT: atraumatic, normocephalic Eye exam: PRESENT: conjunctiva pink, EOMI, PERRLA. ABSENT: scleral icterus Ear exam: PRESENT: normal external ear exam Mouth exam: PRESENT: moist, tongue midline Neck exam: PRESENT: full ROM. ABSENT: carotid bruit, JVD, lymphadenopathy, thyromegaly Respiratory exam: PRESENT: clear to auscultation kristi Cardiovascular exam: PRESENT: RRR. ABSENT: diastolic murmur, rubs, systolic murmur Pulses: PRESENT: normal dorsalis pedis pul, +2 pedal pulses bilateral Vascular exam: PRESENT: normal capillary refill GI/Abdominal exam: PRESENT: normal bowel sounds, soft. ABSENT: distended, guarding, mass, organolmegaly, rebound, tenderness Rectal exam: PRESENT: deferred Musculoskeletal exam: PRESENT: ambulatory Neurological exam: PRESENT: alert, awake, oriented to person, oriented to place, oriented to time, oriented to situation, CN II-XII grossly intact. ABSENT: motor sensory deficit Psychiatric exam: PRESENT: appropriate affect, normal mood. ABSENT: homicidal ideation, suicidal ideation Skin exam: PRESENT: dry, intact, warm. ABSENT: cyanosis, rash Results Laboratory Results: 01/22/20 04:05 01/22/20 04:05 01/22/20 01/22/20 04:05 04:05 WBC 16.1 H RBC 4.36 Hgb 13.0 L Hct 39.0 MCV 89 MCH 29.8 MCHC 33.3 RDW 15.4 H Plt Count 294 Seg Neutrophils % Not Reportable Sodium 139.9 Potassium 3.8 Chloride 102 Carbon Dioxide 28 Anion Gap 10 BUN 12 Creatinine 0.59 Est GFR ( Amer) > 60 Glucose 88 Calcium 8.8 01/10/20 01/10/20 18:10 18:10 Troponin I < 0.012 NT-Pro-B Natriuret Pep 367 H Impressions: Abdomen Ultrasound 01/10/20 19:09 IMPRESSION: Cholelithiasis. No sonographic evidence for cholecystitis. Fatty infiltrative change to the liver copyright 2011 [employer]- All Rights Reserved Chest/Abdomen CTA 01/10/20 19:10 IMPRESSION: No acute process in the abdomen or pelvis Cholelithiasis Patchy areas of infiltrate in the chest bilaterally. Findings are nonspecific and may BE infectious or inflammatory. Possibility of viral pneumonia is not excluded. Abdomen/Pelvis CT 01/10/20 19:11 IMPRESSION: No acute process in the abdomen or pelvis Cholelithiasis Patchy areas of infiltrate in the chest bilaterally. Findings are nonspecific and may BE infectious or inflammatory. Possibility of viral pneumonia is not excluded. Head CT 01/15/20 00:00 IMPRESSION: 1. No acute intracranial findings. 2. Senescent changes with chronic microvascular ischemia. Chest CT 01/18/20 00:00 IMPRESSION: 1. Previous upper lobe infiltrates have improved, although there are increasing infiltrates in the anterior left lower lobe and the posterior right lower lobe since 01/10/2020. Chest X-Ray 01/21/20 00:00 IMPRESSION: The peripheral opacities described on the correlative CT from 01/18/2020 are inconspicuous on a radiograph. Assessment & Plan - Diagnosis (1) Hypoxia Is this a current diagnosis for this admission?: Yes (2) Pneumonia Qualifiers: Pneumonia type: due to unspecified organism Laterality: bilateral Lung location: unspecified part of lung Qualified Code(s): J18.9 - Pneumonia, unsp ecified organism Is this a current diagnosis for this admission?: Yes (3) Weakness Is this a current diagnosis for this admission?: Yes (4) Cerebrovascular disease Is this a current diagnosis for this admission?: Yes (5) Hypertension Qualifiers: Hypertension type: essential hypertension Qualified Code(s): I10 - Es sential (primary) hypertension Is this a current diagnosis for this admission?: Yes (6) Prostate cancer Is this a current diagnosis for this admission?: Yes (7) COVID-19 Is this a current diagnosis for this admission?: Yes (8) Diabetes mellitus Qualifiers: Diabetes mellitus prison insulin use: unspecified prison insulin use status Diabetes mellitus complication status: without complication Is this a current diagnosis for this admission?: Yes - Time Time Spent with patient: 15-24 minutes Level of Care: IMCU Medications reviewed and adjusted accordingly: Yes Anticipated discharge: Home Anticipated DC Timeframe: within 48 hours - Plan Summary Plan Summary: Continues to doxycycline currently doing much better hopefully discharge tomorrow if the remain afebrile stable
[2020-01-22] MEDS: INSULIN LISPRO 100 UNIT/ML 3 ML VIAL SUBCUT SCH ×3 (08:56→21:54)
[2020-01-22] MEDS: SITAGLIPTIN PHOSPHATE 50 MG TABLET PO SCH ×2 (09:09→18:31)
[2020-01-22] MEDS: GABAPENTIN 300 MG CAPSULE PO SCH ×2 (09:09→21:52)
[2020-01-22] MEDS: DOXYCYCLINE HYCLATE 100 MG TABLET PO SCH ×2 (09:09→21:52)
[2020-01-22] MEDS: AMLODIPINE BESYLATE 10 MG TABLET PO SCH (09:11)
[2020-01-22] MEDS: METFORMIN HCL 500 MG TABLET PO SCH ×2 (09:12→18:31)
[2020-01-22] MEDS: ASCORBIC ACID 500 MG TABLET PO SCH ×2 (09:12→18:31)
[2020-01-22] MEDS: ZINC SULFATE 220 MG CAPSULE PO SCH (09:12)
[2020-01-22] MEDS: LOSARTAN POTASSIUM 50 MG TABLET PO SCH ×2 (09:12→18:31)
[2020-01-22] MEDS: ENOXAPARIN SODIUM INJ 40 MG/0.4 ML DISP.SYRIN SUBCUT SCH (09:13)
[2020-01-22] MEDS: INSULIN GLARGINE,HUM.REC.ANLOG 1,000 UNIT/10 ML VIAL SUBCUT SCH ×2 (09:14→21:55)
[2020-01-22] MEDS: ATORVASTATIN CALCIUM 40 MG TABLET PO SCH (21:52)
[2020-01-23] MEDS: PANTOPRAZOLE SODIUM 40 MG TABLET.DR PO SCH (06:06)
--- NOTE | 2020-01-23 08:31 | PDOC DISCHARGE SUMMARY ---
Impression - Admit/DC Date/PCP Admission Date/Primary Care Provider: 01/10/20 21:26 KEI SCHAEFFER MD Discharge Date: 01/23/20 - Discharge Diagnosis (1) Hypoxia Is this a current diagnosis for this admission?: Yes (2) Pneumonia Is this a current diagnosis for this admission?: Yes (3) Weakness Is this a current diagnosis for this admission?: Yes (4) Cerebrovascular disease Is this a current diagnosis for this admission?: Yes (5) Hypertension Is this a current diagnosis for this admission?: Yes (6) Prostate cancer Is this a current diagnosis for this admission?: Yes (7) COVID-19 Is this a current diagnosis for this admission?: Yes (8) Diabetes mellitus Is this a current diagnosis for this admission?: Yes - Additional Information Resuscitation Status: Full Code Discharge Diet: Diabetic Discharge Activity: Activity As Tolerated Referrals: KEI SCHAEFFER MD [Primary Care Provider] - Follow up as needed Prescriptions: Doxycycline Hyclate [Vibramycin 100 mg Tablet] 100 mg PO Q12 #14 tablet Ascorbic Acid [Vitamin C 500 mg Tablet] 500 mg PO BID #60 tablet Home Medications: Amlodipine Besylate [Norvasc 10 mg Tablet] 10 mg PO DAILY 12/24/19 Atorvastatin Calcium [Lipitor 80 mg Tablet] 40 mg PO QHS 12/24/19 Furosemide [Lasix 20 mg Tablet] 20 mg PO QAMP PRN 12/24/19 Gabapentin [Neurontin] 600 mg PO Q12 12/24/19 Irbesartan 150 mg PO BID 12/24/19 Omeprazole 40 mg PO QAM 12/24/19 Insulin Degludec [Tresiba Flextouch U-200] 44 unit SQ BID 01/11/20 Insulin Lispro [Humalog Insulin (Lispro) 100 unit/mL] 0 unit SQ .PERSLIDINGSCALE 01/11/20 Janumet 50-1000mg Tablet 1 tab PO BID 01/11/20 Ascorbic Acid [Vitamin C 500 mg Tablet] 500 mg PO BID #60 tablet 01/23/20 Doxycycline Hyclate [Vibramycin 100 mg Tablet] 100 mg PO Q12 #14 tablet 01/23/20 History of Present Illiness History of Present Illness: CHEY PICHARDO JR is a 64 year old male 64-year-old male with the multiple medical problems diagnosed with the COVID came for the shortness of the breath Hospital Course Hospital Course: This 64-year-old male's with a history of type 2 diabetes history of the hypertension history of the hyperlipidemia history of the subdural hematoma and history of cerebrovascular accident with the multiple comorbidity came to the emergency department with a shortness of breath with a fever diagnosed with the COVID-19 pneumonia Patient is treated with the dexamethasone and antiviral drugs and antibiotic Patient's responds very well patient off the oxygen for the last couple of days walk on the room and all the other medical problem was under control patient is feeling 100% better wants to go home's and no other issues as per patient and nursing staff Physical therapy evaluations done was all Good Discussed with the very extensively regarding the patient's current conditions and patient is discharged with the doxycycline continues the other medications follow next week Physical Exam Vital Signs: Temp Pulse Resp BP Pulse Ox 97.8 F 109 H 18 94/58 L 90 L 01/23/20 04:28 01/23/20 07:00 01/23/20 04:28 01/23/20 04:28 01/23/20 04:28 Intake & Output 01/22/20 01/23/20 01/24/20 06:59 06:59 06:59 Intake Total 972 810 Output Total 2150 650 Balance -1178 160 Weight 130.8 kg 131.3 kg General appearance: PRESENT: no acute distress, well-developed, well-nourished Head exam: PRESENT: atraumatic, normocephalic Eye exam: PRESENT: conjunctiva pink, EOMI, PERRLA. ABSENT: scleral icterus Ear exam: PRESENT: normal external ear exam Mouth exam: PRESENT: moist, tongue midline Neck exam: ABSENT: carotid bruit, JVD, lymphadenopathy, thyromegaly Respiratory exam: PRESENT: clear to auscultation kristi. ABSENT: rales, rhonchi, wheezes Cardiovascular exam: PRESENT: RRR. ABSENT: diastolic murmur, rubs, systolic murmur Pulses: PRESENT: normal dorsalis pedis pul Vascular exam: PRESENT: normal capillary refill GI/Abdominal exam: PRESENT: normal bowel sounds, soft. ABSENT: distended, guarding, mass, organolmegaly, rebound, tenderness Rectal exam: PRESENT: deferred Extremities exam: PRESENT: full ROM. ABSENT: calf tenderness, clubbing, pedal edema Musculoskeletal exam: PRESENT: ambulatory Neurological exam: PRESENT: alert, awake, oriented to person, oriented to place, oriented to time, oriented to situation, CN II-XII grossly intact. ABSENT: motor sensory deficit Psychiatric exam: PRESENT: appropriate affect, normal mood. ABSENT: homicidal ideation, suicidal ideation Skin exam: PRESENT: dry, intact, warm. ABSENT: cyanosis, rash Results Laboratory Results: WBC 16.1 10^3/uL (4.0-10.5) H 01/22/20 04:05 RBC 4.36 10^6/uL (4.35-5.55) 01/22/20 04:05 Hgb 13.0 g/dL (13.5-17.0) L 01/22/20 04:05 Hct 39.0 % (37.9-51.0) 01/22/20 04:05 MCV 89 fl (80-97) 01/22/20 04:05 MCH 29.8 pg (27.0-33.4) 01/22/20 04:05 MCHC 33.3 g/dL (32.0-36.0) 01/22/20 04:05 RDW 15.4 % (11.5-14.0) H 01/22/20 04:05 Plt Count 294 10^3/uL (150-450) 01/22/20 04:05 Lymph % (Auto) Not Reportable 01/22/20 04:05 [place] % (Auto) Not Reportable 01/22/20 04:05 Eos % (Auto) Not Reportable 01/22/20 04:05 Baso % (Auto) Not Reportable 01/22/20 04:05 Absolute Neuts (auto) Not Reportable 01/22/20 04:05 Absolute Lymphs (auto) Not Reportable 01/22/20 04:05 Absolute Monos (auto) Not Reportable 01/22/20 04:05 Absolute Eos (auto) Not Reportable 01/22/20 04:05 Absolute Basos (auto) Not Reportable 01/22/20 04:05 Total Counted 100 01/22/20 04:05 Seg Neutrophils % Not Reportable 01/22/20 04:05 Seg Neuts % (Manual) 77 % (42-78) 01/22/20 04:05 Band Neutrophils % 1 % (3-5) L 01/22/20 04:05 Lymphocytes % (Manual) 18 % (13-45) 01/22/20 04:05 Atypical Lymphs % 2 % (0) 01/22/20 04:05 Monocytes % (Manual) 1 % (3-13) L 01/22/20 04:05 Eosinophils % (Manual) 1 % (0-6) 01/22/20 04:05 Basophils % (Manual) 0 % (0-2) 01/22/20 04:05 Abs Neuts (Manual) 12.6 10^3/uL (1.7-8.2) H 01/22/20 04:05 Abs Lymphs (Manual) 3.2 10^3/uL (0.5-4.7) 01/22/20 04:05 Abs Monocytes (Manual) 0.2 10^3/uL (0.1-1.4) 01/22/20 04:05 Absolute Eos (Manual) 0.2 10^3/uL (0.0-0.6) 01/22/20 04:05 Abs Basophils (Manual) 0.0 10^3/uL (0.0-0.2) 01/22/20 04:05 Toxic Granulation 1+ 01/20/20 04:12 Toxic Vacuolation PRESENT 01/22/20 04:05 Large Platelets PRESENT 01/18/20 05:32 Giant Platelets PRESENT 01/18/20 05:32 Platelet Comment ADEQUATE 01/22/20 04:05 Poikilocytosis 1+ 01/20/20 04:12 Anisocytosis SLIGHT 01/22/20 04:05 Tear Drop Cells 1+ 01/20/20 04:12 Ovalocytes SLIGHT 01/22/20 04:05 Tihen Cells 1+ 01/20/20 04:12 Carbonic Acid 1.09 mmol/L (1.05-1.35) 01/15/20 16:45 HCO3/H2CO3 Ratio 24:1 01/15/20 16:45 ABG pH 7.49 (7.35-7.45) H 01/15/20 16:45 ABG pCO2 36.2 mmHg (35-45) 01/15/20 16:45 ABG pO2 68.0 mmHg (80-100) L 01/15/20 16:45 ABG HCO3 27.2 mmol/L (20-24) H 01/15/20 16:45 ABG Total CO2 28.3 mmol/L (23-27) H 01/15/20 16:45 ABG O2 Saturation 95.0 % (94-98) 01/15/20 16:45 ABG Base Excess 4.0 mmol/L 01/15/20 16:45 VBG pH 7.39 (7.30-7.42) 01/10/20 19:13 VBG pCO2 47.2 mmHg (35-63) 01/10/20 19:13 VBG HCO3 27.9 mmol/L (20-32) 01/10/20 19:13 VBG Base Excess 2.2 mmol/L 01/10/20 19:13 FiO2 2.5L 01/15/20 16:45 Sodium 139.9 mmol/L (137-145) 01/22/20 04:05 Potassium 3.8 mmol/L (3.6-5.0) 01/22/20 04:05 Chloride 102 mmol/L (98-107) 01/22/20 04:05 Carbon Dioxide 28 mmol/L (22-30) 01/22/20 04:05 Anion Gap 10 (5-19) 01/22/20 04:05 BUN 12 mg/dL (7-20) 01/22/20 04:05 Creatinine 0.59 mg/dL (0.52-1.25) 01/22/20 04:05 Est GFR ( Amer) > 60 (>60) 01/22/20 04:05 Est GFR (MDRD) Non-Af > 60 (>60) 01/22/20 04:05 Glucose 88 mg/dL (75-110) 01/22/20 04:05 POC Glucose 306 mg/dL (70-110) H 01/22/20 21:04 Calcium 8.8 mg/dL (8.4-10.2) 01/22/20 04:05 Magnesium 1.8 mg/dL (1.6-2.3) 01/10/20 18:10 Total Bilirubin 2.9 mg/dL (0.2-1.3) H 01/11/20 05:10 Direct Bilirubin 0.4 mg/dL (0.0-0.4) 01/11/20 05:10 Neonat Total Bilirubin Not Reportable 01/11/20 05:10 Neonat Direct Bilirubin Not Reportable 01/11/20 05:10 Neonat Indirect Bili Not Reportable 01/11/20 05:10 AST 31 U/L (17-59) 01/11/20 05:10 ALT 26 U/L (<50) 01/11/20 05:10 Alkaline Phosphatase 83 U/L (38-126) 01/11/20 05:10 Lactate Dehydrogenase 296 U/L (120-246) H 01/11/20 05:10 Troponin I < 0.012 ng/mL 01/10/20 18:10 C-Reactive Protein 54.3 mg/L (<10.0) H 01/11/20 05:10 NT-Pro-B Natriuret Pep 367 pg/mL (<125) H 01/10/20 18:10 Total Protein 6.6 g/dL (6.3-8.2) 01/11/20 05:10 Albumin 3.5 g/dL (3.5-5.0) 01/11/20 05:10 Triglycerides 83 mg/dL (<150) 01/11/20 05:10 Lipase 150.4 U/L (23-300) 01/10/20 18:10 Procalcitonin 0.07 ng/mL (0.00-0.08) 01/10/20 18:10 Urine Color YELLOW 01/16/20 03:20 Urine Appearance CLEAR 01/16/20 03:20 Urine pH 6.0 (5.0-9.0) 01/16/20 03:20 Ur Specific [place] 1.019 01/16/20 03:20 Urine Protein NEGATIVE mg/dL (NEGATIVE) 01/16/20 03:20 Urine Glucose (UA) 150 mg/dL (NEGATIVE) H 01/16/20 03:20 Urine Ketones NEGATIVE mg/dL (NEGATIVE) 01/16/20 03:20 Urine Blood NEGATIVE (NEGATIVE) 01/16/20 03:20 Urine Nitrite NEGATIVE (NEGATIVE) 01/11/20 23:45 Urine Nitrite (Reflex) NEGATIVE (NEGATIVE) 01/16/20 03:20 Urine Bilirubin NEGATIVE (NEGATIVE) 01/16/20 03:20 Urine Urobilinogen 4.0 mg/dL (<2.0) H 01/16/20 03:20 Ur Leukocyte Esterase NEGATIVE (NEGATIVE) 01/11/20 23:45 Leukocyte Esterase Rfl NEGATIVE (NEGATIVE) 01/16/20 03:20 Urine WBC (Auto) 0 /HPF 01/11/20 23:45 Urine RBC (Auto) 0 /HPF 01/11/20 23:45 Urine RBC RARE /HPF 01/16/20 03:20 Urine WBC 0-1 /HPF 01/16/20 03:20 Squamous Epi Cells Auto <1 /HPF 01/11/20 23:45 Urine Bacteria TRACE /HPF 01/16/20 03:20 Urine Mucus (Auto) RARE /LPF 01/11/20 23:45 Urine Ascorbic Acid NEGATIVE (NEGATIVE) 01/16/20 03:20 COVID-19 Source NASOPHARYNGEAL 01/10/20 22:22 COVID-19 (SHAREE) DETECTED H 01/10/20 22:22 01/10/20 01/10/20 18:10 18:10 Troponin I < 0.012 NT-Pro-B Natriuret Pep 367 H Impressions: Abdomen Ultrasound 01/10/20 19:09 IMPRESSION: Cholelithiasis. No sonographic evidence for cholecystitis. Fatty infiltrative change to the liver copyright 2011 [employer]- All Rights Reserved Chest/Abdomen CTA 01/10/20 19:10 IMPRESSION: No acute process in the abdomen or pelvis Cholelithiasis Patchy areas of infiltrate in the chest bilaterally. Findings are nonspecific and may BE infectious or inflammatory. Possibility of viral pneumonia is not excluded. Abdomen/Pelvis CT 01/10/20 19:11 IMPRESSION: No acute process in the abdomen or pelvis Cholelithiasis Patchy areas of infiltrate in the chest bilaterally. Findings are nonspecific and may BE infectious or inflammatory. Possibility of viral pneumonia is not excluded. Chest X-Ray 01/12/20 00:00 IMPRESSION: New patchy right basilar airspace disease suspicious for pneumonia. Head CT 01/13/20 00:00 IMPRESSION: CHRONIC CHANGES OF ATROPHY AND MICROVASCULAR ISCHEMIA. MAXILLARY SINUS DISEASE. NO ACUTE PROCESS. EVIDENCE OF ACUTE STROKE: NO. Head CT 01/15/20 00:00 IMPRESSION: 1. No acute intracranial findings. 2. Senescent changes with chronic microvascular ischemia. Chest CT 01/18/20 00:00 IMPRESSION: 1. Previous upper lobe infiltrates have improved, although there are increasing infiltrates in the anterior left lower lobe and the posterior right lower lobe since 01/10/2020. Chest X-Ray 01/18/20 00:00 IMPRESSION: Early or developing right upper lobe infiltrate Chest X-Ray 01/21/20 00:00 IMPRESSION: The peripheral opacities described on the correlative CT from 01/18/2020 are inconspicuous on a radiograph. Plan Time Spent: Greater than 30 Minutes - Continues to doxycycline's continues to monitor the patient's symptoms discussed with the patient and the any worsening the symptoms call back Stroke Is this a Stroke Patient?: No Acute Heart Failure - Is this a Heart Failure Patient?: No
[2020-01-23 09:47] VITALS: BP 113/76
== END 2020-01-23 10:45 | disposition home or self-care (01) | DRG 177 ==
LOC: ER 17:04 → EH 21:26 → 3N 23:52
PROVIDERS: ADMIT Family Medicine; ATTEND Family Medicine
PROC: XW033E5 Introduction of Remdesivir Anti-infective into Peripheral Vein, Percutaneous Approach, New Technology Group 5 (ICD-10-PCS; 2020-01-12)
PROC: 5A09457 Assistance with Respiratory Ventilation, 24-96 Consecutive Hours, Continuous Positive Airway Pressure (ICD-10-PCS; 2020-01-13)
PROC: XW033E5 Introduction of Remdesivir Anti-infective into Peripheral Vein, Percutaneous Approach, New Technology Group 5 (ICD-10-PCS; principal; 2020-01-16)
DX: U07.1 COVID-19 (principal); J12.89 Other viral pneumonia; J96.01 Acute respiratory failure with hypoxia; E78.5 Hyperlipidemia, unspecified; I10 Essential (primary) hypertension; C61 Malignant neoplasm of prostate; E11.9 Type 2 diabetes mellitus without complications; D72.829 Elevated white blood cell count, unspecified; K21.9 Gastro-esophageal reflux disease without esophagitis; Z87.891 Personal history of nicotine dependence; Z79.4 Long term (current) use of insulin; Z88.1 Allergy status to other antibiotic agents; Z86.73 Personal history of transient ischemic attack (TIA), and cerebral infarction without residual deficits
CPT/HCPCS: 36415; 36600; 70450; 71045; 71260; 71275; 74177; 76705; 80048; 80053; 81001; 82803; 82962; 83615; 83690; 83735; 83880; 84145; 84478; 84484; 85025; 86140; 87040; 87635; 93005; 93010; 94660; 96365; 96368; 96375; 99285; C9803; J0456; J0696; J0743; J1100; J1200; J1650; J1815; J2020; J2405; J3490; J7030; J7050; J7060; S0028